=== PATIENT | male | born 1945 | race Caucasian/White ===

== ENCOUNTER 2017-12-09 17:35 | Emergency (ER) | payer OTHER, BC ==
[2017-12-09 18:20] VITALS: BP 117/68; PULSE 79; TEMP 98.4; BMI 31.4
--- NOTE | 2017-12-09 19:15 | PDOC ---
History of Present Illness - General History Source: Patient, Family, Old Records Exam Limitations: No Limitations - History of Present Illness Initial Comments: 12/09/17 19:48 The patient is a 72 year old male, who presents to the emergency department with COPD (on C-pap), body aches, runny nose, cough, sore throat and blurry vision for the past week. He notes that he has had this symptoms multiple times in the past. He states that his cough is productive of a green phlegm. He reports that he has been having discharge from the eyes and notes that he went to the opthamologist who prescribed him some drops. The patient denies chest pain, shortness of breath, headache and dizziness. Denies fever, chills, nausea, vomit, diarrhea and constipation. Denies dysuria, frequency, urgency and hematuria. 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 Cigarette use (5 daily)( 50 year use) MEDICATIONS: reviewed General: No fevers or chills, no weakness, no weight loss HEENT: (+) Sore throat, runny nose and Blurry vision with discharge. No ear pain CardioVascular: No chest pain or shortness of breath Respiratory: (+) Cough with phlegm. No wheezing. Gastrointestinal: no nausea, vomiting, diarrhea or constipation, No rectal bleeding Genitourinary: No dysuria, hematuria, or frequency Musculoskeletal: No joint or muscle pain or swelling Neurologic: No headache, vertigo, dizziness or loss of consciousness Psychiatric: nor depression Skin: No rashes or easy bruising Endocrine: no increased thirst or abnormal weight change Allergic: no skin or latex allergy All other systems reviewed and normal General: Well-nourished well-developed individual, no acute distress HEENT: (+) Bilateral conjuctivitus with thick discharged. Nasal congestion. Neck: Supple, no meningeal signs, no lymphadenopathy Eyes::Pupils equal reactive and round, extraocular motion intact Chest: Nontender to palpation Cardiac: S1-S2 normal, regular rate and rhythm, no murmurs rubs or gallops Respiratory: Lungs clear to auscultation bilateral Abdomen: Soft, nondistended, normal bowel sounds, nontender to palpation diffusely Extremities: Warm, dry, no cyanosis, clubbing, or edema Skin: No rashes Neuro: Alert and oriented x3, nonfocal exam, grossly intact, normal gait Psych: Normal mood and affect <Nick Carrera - Last Filed: 12/09/17 19:59> - General History Source: Patient Exam Limitations: No Limitations - History of Present Illness Initial Comments: A portion of this note was documented by scribe services under my direction. I have reviewed the details of the note, within reason, and agree with the documentation. The case summary and management plan written by me. Assessment and plan: This is a 72-year-old male who has multiple chronic medical problems and is on a seatbelt machine for sleep apnea. Patient has frequent sinus and respiratory infection secondary to what he is attributing to his sleep apnea not being able to be properly cleaned. Patient comes in complaining of discomfort in the area of his frontal maxillary sinuses with thick green and yellow discharge from his nose and also says he is coughing some up. It is unclear as to whether or not it is postnasal drip that is bringing up something from the lungs. However his vitals are normal he has no fever he was not noted to be coughing in the emergency room and his breath sounds were decreased but otherwise clear. Patient saw his primary care doctor earlier in the day was started him on Zyrtec for ALLERGIES. I added azithromycin and suggested that he get a better system for cleaning his see Pap. Patient discharged home with his <Lucille Aragon I - Last Filed: 12/09/17 23:12> - General Chief Complaint: Cold Symptoms Stated Complaint: RUNNY NOSE Time Seen by Provider: 12/09/17 17:41 Past History <Nick Carrera - Last Filed: 12/09/17 19:59> - Past Medical History Anemia: No Asthma: No Cancer: Yes (soft tissue synovial sarcoma) Cardiac Disorders: Yes (ASHD S/P PTCA-1990) CVA: No COPD: Yes (STREP.PNEUMONIA,COPD) CHF: No Dementia: No Diabetes: Yes GI Disorders: Yes (gerd,colonic polyps,diverticulosis) Disorders: No HTN: Yes Hypercholesterolemia: Yes Kidney Stones: Yes Liver Disease: Yes (NAFLD) Psychiatric Problems: Yes (PANIC ATTACKS.) Seizures: No Thyroid Disease: No - Surgical History Abdominal Surgery: Yes (AAA REPAIR 05/18/15) Appendectomy: No Cardiac Surgery: Yes (TRIPLE BY PASS SURGERY-07/18/09) Cholecystectomy: No GI Surgery: No Lung Surgery: No Neurologic Surgery: No Orthopedic Surgery: Yes (LEFT HEMIPELVECTOMY FOR SYNOVIAL SARCOMA RELATED TO AGENT ORANGE EXPOSURE) - Immunization History Immunization Up to Date: Yes - Suicide/Smoking/Psychosocial Hx Smoking Status: Yes Smoking History: Current every day smoker Years of Tobacco Use: 50 Have you smoked in the past 12 months: Yes Number of Cigarettes Smoked Daily: 20 If you are a former smoker, when did you quit?: "many years ago" Information on smoking cessation initiated: Yes 'Breaking Loose' booklet given: 12/09/17 Hx Alcohol Use: No Drug/Substance Use Hx: No Substance Use Type: None Hx Substance Use Treatment: No <Lucille Aragon I - Last Filed: 12/09/17 23:12> - Past Medical History Allergies/Adverse Reactions: Allergies Allergy/AdvReac Type Severity Reaction Status Date / Time topiramate [From Topamax] Allergy Severe caused Verified 01/24/16 10:42 visual problems-glaucoma niacin Allergy Verified 01/24/16 10:42 Home Medications: Ambulatory Orders Aspirin [Aspirin EC] 81 mg PO DAILY 03/07/15 Candesartan/Hydrochlorothiazid [Atacand Hct 32-12.5 mg -] 1 tab PO DAILY Clonazepam 1 mg PO BID 03/07/15 Metoprolol Succinate [Toprol XL -] 50 mg PO BID 03/07/15 Multivitamins [Multivit ([facility] Formulary)] 1 tab PO DAILY 03/07/15 Vienna-3 Fatty Acids [Vienna-3] 1,000 mg PO DAILY 03/07/15 Ranitidine [Zantac -] 150 mg PO BID 03/07/15 Rosuvastatin Calcium [Crestor] 10 mg PO HS 03/07/15 Sitagliptin Phosphate [Januvia] 100 mg PO DAILY 03/07/15 Amlodipine Besylate 7.5 mg PO DAILY 09/06/15 Ascorbate Calcium [Vitamin C] 500 mg PO DAILY 09/06/15 Tiotropium [place] [Spiriva] 1 inh PO DAILY 09/06/15 Glipizide 5 mg PO DAILY 10/03/16 HYDROmorphone [Dilaudid -] 2 mg PO PRN PRN 10/03/16 Pregabalin [Lyrica -] 50 mg PO BID 10/03/16 Mag Carb/Aluminum Hydrox/Algin [Gaviscon Liquid] 30 ml PO PRN PRN #0 oral.susp 10/04/16 Azithromycin [Zithromax 250mg Tablets -] 250 mg PO DAILY #4 tablet 12/09/17 *Physical Exam - Vital Signs Last Vital Signs Temp Pulse Resp BP Pulse Ox 98.4 F 79 20 117/68 96 12/09/17 17:36 12/09/17 17:36 12/09/17 17:36 12/09/17 17:36 12/09/17 17:36 <Nick Carrera - Last Filed: 12/09/17 19:59> - Vital Signs Last Vital Signs Temp Pulse Resp BP Pulse Ox 98.4 F 79 20 117/68 96 12/09/17 17:36 12/09/17 17:36 12/09/17 17:36 12/09/17 17:36 12/09/17 17:36 <Lucille Aragon I - Last Filed: 12/09/17 23:12> *DC/Admit/Observation/Transfer - Attestations Scribe Attestion: 12/09/17 19:48 Documentation prepared by Nick Carrera, acting as director medical affairs for Lucille Aragon MD <Nick Carrera - Last Filed: 12/09/17 19:59> - Discharge Dispostion Admit: No <Lucille Aragon I - Last Filed: 12/09/17 23:12> Diagnosis at time of Disposition: Sinusitis Bilateral conjunctivitis Qualifiers: Conjunctivitis type: unspecified Qualified Code(s): H10.9 - Unspecified conjunctivitis - Discharge Dispostion Disposition: HOME Condition at time of disposition: Stable - Prescriptions Prescriptions: Azithromycin [Zithromax 250mg Tablets -] 250 mg PO DAILY #4 tablet - Patient Instructions Additional Instructions: Continue the drops for the eyes as prescribed. You were given the first dose of the azithromycin/Z-Doyle tonight so to get the prescription filled take your next dose tomorrow take it once a day for the next 4 days. Continue the Zyrtec twice a day. Continue to work on getting a C Pap welt sole layer. Return to the emergency department immediately with ANY new, persistent or worsening symptoms. Continue any medications as previously prescribed by your physician. You should follow up with your primary doctor as soon as possible regarding today's emergency department visit. . Please make sure your doctor reviews the results of your emergency evaluation. Thank you for coming to the Emergency Department today for your care. It was a pleasure to see you today. Please note that your evaluation is INCOMPLETE until you follow-up with your doctor.
[2017-12-09] MEDS ORDERED: AZITHROMYCIN 500 MG TABLET PO ONE (20:00)
[2017-12-09] MEDS ORDERED: AZITHROMYCIN 500 MG TABLET ONE (20:02)
== END 2017-12-09 20:04 | disposition home or self-care (01) ==
LOC: FER 17:35
DX: J32.9 Chronic sinusitis, unspecified (principal); H10.9 Unspecified conjunctivitis; E11.9 Type 2 diabetes mellitus without complications; F41.8 Other specified anxiety disorders; I10 Essential (primary) hypertension; K76.0 Fatty (change of) liver, not elsewhere classified
CPT/HCPCS: 99281-25

== ENCOUNTER 2018-07-28 22:25 | Inpatient (IN) | payer OTHER, BC ==
--- NOTE | 2018-07-28 23:46 | PDOC ---
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 He reports his cough is productive of brown and clear sputum and exacerbated when lying flat. He states he was laying down watching TV when he felt a sudden onset of chest tightness which lasted about 2 minutes and resolved at 7PM. He states that at about 7:30PM he stood up and became weak, shaky, nauseous, and reportedly almost fell secondary to feeling weak. His at bedside reports the patient had been shaking so hard and was warm to the touch, however, did not have a fever when she checked his temperature at home. The patient reportedly had one episode of emesis at that time and one more just prior to coming to the ED. He states he has had pneumonia in the past. He states he did not drink any fluids today and is not a water drinker regularly. The patient denies headache and dizziness. The patient denies fever, diarrhea and constipation. The patient denies dysuria, frequency, urgency and hematuria. Allergies: Niacin, topamax Past surgical history: hemipelvectomy (1972), LLE amputation, AAA repair Social history: 50+ year history of cigarette smoking <Brigitte Santiago - Last Filed: 07/28/18 23:58> <Mayte Kothari - Last Filed: 07/29/18 03:55> - General Chief Complaint: Respiratory Stated Complaint: COUGH HOT AND COLD Time Seen by Provider: 07/28/18 22:39 Past History <Brigitte Santiago - Last Filed: 07/28/18 23:58> - Past Medical History Anemia: No Asthma: No Cancer: Yes (soft tissue synovial sarcoma) Cardiac Disorders: Yes (ASHD S/P PTCA-1990) CVA: No COPD: Yes (STREP.PNEUMONIA,COPD) CHF: No Dementia: No Diabetes: Yes GI Disorders: Yes (gerd,colonic polyps,diverticulosis) Disorders: No HTN: Yes Hypercholesterolemia: Yes Kidney Stones: Yes Liver Disease: Yes (NAFLD) Psychiatric Problems: Yes (PANIC ATTACKS. PTSD) Seizures: No Thyroid Disease: No Other medical history: GLAUCOMA - Surgical History Abdominal Surgery: Yes (AAA REPAIR 05/18/15) Appendectomy: No Cardiac Surgery: Yes (TRIPLE BY PASS SURGERY-07/18/09) Cholecystectomy: No GI Surgery: No Lung Surgery: No Neurologic Surgery: No Orthopedic Surgery: Yes (LEFT HEMIPELVECTOMY FOR SYNOVIAL SARCOMA RELATED TO AGENT ORANGE EXPOSURE) - Immunization History Immunization Up to Date: Yes - Suicide/Smoking/Psychosocial Hx Smoking Status: Yes Smoking History: Current every day smoker Years of Tobacco Use: 50 Have you smoked in the past 12 months: Yes Number of Cigarettes Smoked Daily: 30 If you are a former smoker, when did you quit?: "many years ago" Information on smoking cessation initiated: No 'Breaking Loose' booklet given: 12/09/17 Hx Alcohol Use: No Drug/Substance Use Hx: No Substance Use Type: None Hx Substance Use Treatment: No <Mayte Kothari - Last Filed: 07/29/18 03:55> - Past Medical History Allergies/Adverse Reactions: Allergies Allergy/AdvReac Type Severity Reaction Status Date / Time topiramate [From Topamax] Allergy Severe caused Verified 07/28/18 22:28 visual problems-glaucoma niacin Allergy Verified 07/28/18 22:28 Home Medications: Ambulatory Orders Aspirin [Aspirin EC] 81 mg PO DAILY 03/07/15 Candesartan/Hydrochlorothiazid [Atacand Hct 32-12.5 mg -] 1 tab PO DAILY Clonazepam 1 mg PO BID 03/07/15 Metoprolol Succinate [Toprol XL -] 50 mg PO BID 03/07/15 Multivitamins [Multivit ([facility] Formulary)] 1 tab PO DAILY 03/07/15 Steen-3 Fatty Acids [Steen-3] 1,000 mg PO DAILY 03/07/15 Ranitidine [Zantac -] 150 mg PO BID 03/07/15 Rosuvastatin Calcium [Crestor] 10 mg PO HS 03/07/15 Sitagliptin Phosphate [Januvia] 100 mg PO DAILY 03/07/15 Ascorbate Calcium [Vitamin C] 500 mg PO DAILY 09/06/15 Tiotropium [place] [Spiriva] 1 inh PO DAILY 09/06/15 Pregabalin [Lyrica -] 50 mg PO BID 10/03/16 Amlodipine Besylate 7.5 mg PO DAILY 07/28/18 Budesonide/Formeterol Fumarate [SYMBICORT 80/4.5mcg -] 1 puff IN PRN 07/28/18 Cholecalciferol (Vitamin D3) [Vitamin D -] 2,000 mg PO DAILY 07/28/18 Metformin HCl [Glucophage] 1,000 mg PO BID 07/28/18 Steen-3/Dha/Epa/Fish Oil [Steen 3 500 Softgel] 1 cap PO DAILY 07/28/18 Review of Systems - Review of Systems Able to Perform ROS?: Yes Comments:: 07/28/18 23:55 CONSTITUTIONAL: (+) chills, generalized weakness, fatigue. Absent: fever, diaphoresis, malaise , loss of appetite HEENT: Absent: rhinorrhea, nasal congestion, throat pain, throat swelling, difficulty swallowing,mouth swelling, ear pain, eye pain, visual Changes CARDIOVASCULAR: (+) chest pain, Absent: syncope, palpitations, irregular heart rate, lightheadedness, peripheral edema RESPIRATORY: (+) cough, shortness of breath, orthopnea, Absent: dyspnea with exertion, wheezing, stridor, hemoptysis GASTROINTESTINAL: (+) nausea, vomiting, Absent: abdominal pain, abdominal distension, diarrhea, constipation, melena, hematochezia GENITOURINARY: Absent: dysuria, frequency, urgency, hesitancy, hematuria, flank pain, genital pain MUSCULOSKELETAL: Absent: myalgia, arthralgia, joint swelling SKIN: Absent: rash, itching, pallor HEMATOLOGIC/IMMUNOLOGIC: Absent: easy bleeding, easy bruising, lymphadenopathy, frequent infections ENDOCRINE: Absent: unexplained weight gain, unexplained weight loss, heat intolerance, cold intolerance NEUROLOGIC: Absent: headache, focal weakness or paresthesias, dizziness, unsteady gait, seizure, mental status changes, bladder or bowel incontinence PSYCHIATRIC: Absent: anxiety, depression, suicidal or homicidal ideation, hallucinations. <Brigitte Santiago - Last Filed: 07/28/18 23:58> *Physical Exam - Vital Signs Last Vital Signs Temp Pulse Resp BP Pulse Ox 99.1 F 93 H 16 116/69 93 L 07/28/18 22:28 07/28/18 22:28 07/28/18 22:28 07/28/18 22:28 07/28/18 22:28 - Physical Exam Comments: 07/28/18 23:57 GENERAL: The patient is awake, alert, and fully oriented, in no acute distress. HEAD: Normal with no signs of trauma. EYES: Pupils equal, round and reactive to light, extraocular movements intact, sclera anicteric, conjunctiva clear with no pallor. ENT: (+) Dry mucous membranes. Ears normal, nares patent, oropharynx clear without exudates. NECK: Normal range of motion, supple without lymphadenopathy, JVD, or masses. LUNGS: (+) Expiratory crackles at bilateral bases. Breath sounds equal, No Wheezes. HEART: Regular rate and rhythm, normal S1 and S2 without murmur or rub. ABDOMEN: Soft/nontender/nondistended. BS wnl. No guarding or rebound. No palpable masses. No hepatosplenomegaly. EXTREMITIES: s/p LLE amputation. Normal range of motion, no edema. No clubbing or cyanosis. No cords, erythema, or tenderness. NEUROLOGICAL: Cranial nerves II through XII grossly intact. Normal speech, normal gait. PSYCH: Normal mood, normal affect. SKIN: Warm, Dry, normal turgor, no rashes or lesions noted. <Brigitte Santiago - Last Filed: 07/28/18 23:58> - Vital Signs Last Vital Signs Temp Pulse Resp BP Pulse Ox 99.1 F 93 H 16 116/69 93 L 07/28/18 22:28 07/28/18 22:28 07/28/18 22:28 07/28/18 22:28 07/28/18 22:28 <Mayte Kothari - Last Filed: 07/29/18 03:55> ED Treatment Course - LABORATORY CBC & Chemistry Diagram: 07/29/18 00:50 07/29/18 00:02 <Mayte Kothari - Last Filed: 07/29/18 03:55> Progress Note - Progress Note Progress Note: Documentation has been prepared under my direction and personally reviewed by me in its entirety. I attest that this documented accurately reflects all work, treatment, procedures and medical decision making performed by me. 12-lead electrocardiogram is performed and interpreted by me: This shows normal sinus rhythm at 83 bpm. There is right bundle branch block present there is no significant change when compared to previous EKG tracing dated 09/06/15 <Mayte Kothari - Last Filed: 07/29/18 03:55> Medical Decision Making - Medical Decision Making As noted above, this 73-year-old man with multiple medical problems including COPD, diabetes mellitus, hypertension presents with 2 week history of cough productive of brownish sputum and sudden onset of weakness/chest tightness and shaking chills this evening. Patient had similar episode 4 years ago which resulted in inpatient admission for treatment of pneumonia. Exam as noted. Laboratory evaluation notable for blood cell count of 16,000 with predominance of neutrophils. Remainder of laboratory values are essentially normal. Troponin is not elevated portable chest x-ray shows questionable left lower lobe infiltrate but no clear consolidation or effusion. UA shows no evidence of UTI Lactic acid is 1.[address] Garcia Principal Investigator is Dr Chris 07/29/18 03:37 Clinical presentation consistent with acute pneumonia. Patient is at risk for sepsis given his multiple medical problems. Rocephin 1 g IV as well as azithromycin 500 mg IV administered for community acquired pneumonia. [facility] hospitalist service contacted regarding admission for IV antibiotics for pneumonia 07/29/18 03:52 Case discussed with JIMBO Alan of [facility] Hospitalist service. Patient will be admitted to Dr Owen, Observation <Mayte Kothari - Last Filed: 07/29/18 03:55> *DC/Admit/Observation/Transfer - Attestations Scribe Attestion: 07/28/18 23:59 Documentation prepared by Brigitte Santiago, acting as medical oncologist for Mayte Kothari MD <Brigitte Santiago - Last Filed: 07/28/18 23:58> - Discharge Dispostion Decision to Admit order: Yes <Mayte Kothari - Last Filed: 07/29/18 03:55> Diagnosis at time of Disposition: Pneumonia Qualifiers: Pneumonia type: due to unspecified organism Laterality: left Lung location: lower lobe of lung Qualified Code(s): J18.1 - Lobar pneumonia, unspecified organism - Discharge Dispostion Condition at time of disposition: Guarded
[2018-07-29 01:17] LABS: BASO % 0.6 % (0-2.0); EOS % 0.3 % (0-4.5); HEMATOCRIT 47.3 % (35.4-49); HEMOGLOBIN 15.6 GM/dL (11.7-16.9); LYMPH % 8.6 % (8-40); MCH 30.3 pg (25.7-33.7); MEAN CELL VOLUME 91.8 fl (80-96); MEAN PLT VOLUME 11.6 fl (7.5-11.1); MONO % 6.6 % (3.8-10.2); NEUT % 83.9 % (42.8-82.8); PLATELET COUNT 144 K/MM3 (134-434); RBC 5.15 M/mm3 (4.00-5.60); RDW 14.5 % (11.9-15.9)
[2018-07-29 01:37] LABS: ALBUMIN 3.3 g/dl (3.4-5.0); ALK PHOS 69 U/L (45-117); ANION GAP 11 MMOL/L (8-16); BILIRUBIN,TOTAL 0.6 mg/dL (0.2-1); BLOOD UREA NITROGEN 17 mg/dL (7-18); CALCIUM 9.1 mg/dL (8.5-10.1); CHLORIDE 102 mmol/L (98-107); CO2 25 mmol/L (21-32); CREATININE 0.9 mg/dL (0.55-1.3); GLUCOSE,RANDOM 207 mg/dL (74-106); POTASSIUM 3.6 mmol/L (3.5-5.1); SGOT/AST 34 U/L (15-37); SGPT/ALT 47 U/L (13-61); SODIUM 138 mmol/L (136-145)
[2018-07-29] MEDS ORDERED: CEFTRIAXONE 1 GM in DEXTROSE 5%-WATER - 100 ML IVPB ONE (02:31)
[2018-07-29] MEDS ORDERED: AZITHROMYCIN IVPB 500 MG in DEXTROSE 5%-WATER - 250 ML IVPB ONE (02:33)
[2018-07-29] MEDS ORDERED: cefTRIAXone SODIUM 1 GM VIAL ONE (02:36)
[2018-07-29] MEDS ORDERED: AZITHROMYCIN 500 MG VIAL IVPB ONE (02:36)
[2018-07-29 03:15] LABS: URINE APPEARANCE CLEAR; URINE BILIRUBIN NEGATIVE (<2.0 mg/dL); URINE COLOR DKYELLOW; URINE GLUCOSE (UA) NEGATIVE (NEGATIVE); URINE KETONE NEGATIVE (NEGATIVE); URINE LEUK ESTERASE TRACE (NEGATIVE); URINE NITRITE NEGATIVE (NEGATIVE); URINE PROTEIN 2+ (NEGATIVE)
[2018-07-29 03:31] LABS: URINE BACTERIA FEW /hpf (NONE SEEN); URINE MUCUS RARE
[2018-07-29 05:11] VITALS: BMI 29.6
--- NOTE | 2018-07-29 08:36 | HP ---
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 Patient reports 2 weeks of ongoing cough and sputum production. He reports taking his home inhaler (albuterol) with relief of symptoms. Last evening patient reports worsening of cough and chills. He noted rust colored sputum and became concerned because he was hospitalized in 2013 for strep pneumonia that required PICC line for care home antibiotics. ER course was notable for: (1) chest xray: no infiltrates no effusions noted (2)wbc 16.0 (3) ekg nsr Right B Recent Travel:none PAST MEDICAL HISTORY: see hpi PAST SURGICAL HISTORY: see hpi Social History: retired, [place] , resides at home with Smoking:smokes a 1/2 pack of cigarrettes a day Alcohol:none as per patient Drugs: none as per patient Family History: non contributory to this condition Allergies topiramate [From Topamax] Allergy (Severe, Verified 07/28/18 22:28) caused visual problems-glaucoma niacin Allergy (Verified 07/28/18 22:28) HOME MEDICATIONS: Home Medications Medication Instructions Recorded Aspirin [Aspirin EC] 81 mg PO DAILY 03/07/15 Candesartan/Hydrochlorothiazid 1 tab PO DAILY 03/07/15 [Atacand Hct 32-12.5 mg -] Clonazepam 1 mg PO BID 03/07/15 Metoprolol Succinate [Toprol XL -] 50 mg PO BID 03/07/15 Multivitamins [Multivit ([facility] 1 tab PO DAILY 03/07/15 Formulary)] [place]-3 Fatty Acids [[place]-3] 1,000 mg PO DAILY 03/07/15 Ranitidine [Zantac -] 150 mg PO BID 03/07/15 Rosuvastatin Calcium [Crestor] 10 mg PO HS 03/07/15 Sitagliptin Phosphate [Januvia] 100 mg PO DAILY 03/07/15 Ascorbate Calcium [Vitamin C] 500 mg PO DAILY 09/06/15 Tiotropium [place] [Spiriva] 1 inh PO DAILY 09/06/15 Pregabalin [Lyrica -] 50 mg PO BID 10/03/16 Amlodipine Besylate 7.5 mg PO DAILY 07/28/18 Budesonide/Formeterol Fumarate 2 puff IN PRN PRN 07/28/18 [SYMBICORT 80/4.5mcg -] Cholecalciferol (Vitamin D3) 2,000 mg PO DAILY 07/28/18 [Vitamin D -] Metformin HCl [Glucophage] 1,000 mg PO BID 07/28/18 [place]-3/Dha/Epa/Fish Oil [[place] 3 1 cap PO DAILY 07/28/18 500 Softgel] REVIEW OF SYSTEMS CONSTITUTIONAL: Absent: fever, chills, diaphoresis, generalized weakness, malaise, loss of appetite, weight change HEENT: Absent: rhinorrhea, nasal congestion, throat pain, throat swelling, difficulty swallowing, mouth swelling, ear pain, eye pain, visual changes CARDIOVASCULAR: Absent: chest pain, syncope, palpitations, irregular heart rate, lightheadedness , peripheral edema RESPIRATORY: Present: cough Absent:, shortness of breath, dyspnea with exertion, orthopnea, wheezing, stridor, hemoptysisGASTROINTESTINAL: Absent: abdominal pain, abdominal distension, nausea, vomiting, diarrhea, constipation, melena, hematochezia GENITOURINARY: Absent: dysuria, frequency, urgency, hesitancy, hematuria, flank pain, genital pain MUSCULOSKELETAL: Absent: myalgia, arthralgia, joint swelling, back pain, neck pain SKIN: Absent: rash, itching, pallor HEMATOLOGIC/IMMUNOLOGIC: Absent: easy bleeding, easy bruising, lymphadenopathy, frequent infections ENDOCRINE: Absent: unexplained weight gain, unexplained weight loss, heat intolerance, cold intolerance NEUROLOGIC: Absent: headache, focal weakness or paresthesias, dizziness, unsteady gait, seizure, mental status changes, bladder or bowel incontinence PSYCHIATRIC: Absent: anxiety, depression, suicidal or homicidal ideation, hallucinations. PHYSICAL EXAMINATION Vital Signs - 24 hr 07/28/18 07/29/18 07/29/18 22:28 00:16 01:57 Temperature 99.1 F 98.7 F Pulse Rate 93 H Pulse Rate [ 71 Left] Respiratory 16 18 Rate Blood Pressure 116/69 Blood Pressure 118/67 [Right Arm] O2 Sat by Pulse 93 L 93 L 92 L Oximetry (%) 07/29/18 07/29/18 07/29/18 04:10 05:30 05:40 Temperature 98.2 F 98.0 F Pulse Rate 62 Pulse Rate [ 67 Left] Respiratory 20 20 Rate Blood Pressure 102/40 L Blood Pressure 111/64 [Right Arm] O2 Sat by Pulse 100 96 Oximetry (%) GENERAL: Awake, alert, and fully oriented, in no acute distress. HEAD: Normal with no signs of trauma. EYES: Pupils equal, round and reactive to light, extraocular movements intact, sclera anicteric, conjunctiva clear. No lid lag. EARS, NOSE, THROAT: Ears normal, nares patent, oropharynx clear without exudates. Moist mucous membranes. NECK: Normal range of motion, supple without lymphadenopathy, JVD, or masses. LUNGS: Breath sounds equal, clear to auscultation bilaterally to apexes, crackles noted to bilateral bases, No wheezescra. No accessory muscle use. HEART: Regular rate and rhythm, normal S1 and S2 without murmur, rub or gallop. ABDOMEN: Soft, nontender, not distended, normoactive bowel sounds, no guarding, no rebound, no masses. No hepatomegaly or splenomegaly. MUSCULOSKELETAL: Normal range of motion at all joints. No bony deformities or tenderness. No CVA tenderness. UPPER EXTREMITIES: 2+ pulses, warm, well-perfused. No cyanosis. No clubbing. No peripheral edema. LOWER EXTREMITIES: 2+ pulses, warm, well-perfused. No calf tenderness. No peripheral edema. LLE amputated NEUROLOGICAL: Cranial nerves II-XII intact. Normal speech. Normal gait. PSYCHIATRIC: Cooperative. Good eye contact. Appropriate mood and affect. SKIN: Warm, dry, normal turgor, no rashes or lesions noted, normal capillary refill. Laboratory Results - last 24 hr 07/29/18 07/29/18 07/29/18 00:02 00:02 00:50 WBC 16.0 H RBC 5.15 Hgb 15.6 Hct 47.3 D MCV 91.8 MCH 30.3 D MCHC 33.0 RDW 14.5 D Plt Count 144 MPV 11.6 H D Absolute Neuts (auto) 13.5 H Neutrophils % 83.9 H D Lymphocytes % 8.6 D Monocytes % 6.6 Eosinophils % 0.3 D Basophils % 0.6 Nucleated RBC % 0 Sodium 138 Potassium 3.6 Chloride 102 Carbon Dioxide 25 Anion Gap 11 BUN 17 Creatinine 0.9 Creat Clearance w eGFR > 60 Random Glucose 207 H Lactic Acid Calcium 9.1 Total Bilirubin 0.6 AST 34 ALT 47 Alkaline Phosphatase 69 Creatine Kinase 51 Troponin I < 0.02 Total Protein 7.0 Albumin 3.3 L Urine Color Urine Appearance Urine pH Ur Specific [place] Urine Protein Urine Glucose (UA) Urine Ketones Urine Blood Urine Nitrite Urine Bilirubin Urine Urobilinogen Ur Leukocyte Esterase Urine WBC (Auto) Urine RBC (Auto) Urine Bacteria Urine Mucus 07/29/18 07/29/18 02:13 02:13 WBC RBC Hgb Hct MCV MCH MCHC RDW Plt Count MPV Absolute Neuts (auto) Neutrophils % Lymphocytes % Monocytes % Eosinophils % Basophils % Nucleated RBC % Sodium Potassium Chloride Carbon Dioxide Anion Gap BUN Creatinine Creat Clearance w eGFR Random Glucose Lactic Acid 1.9 Calcium Total Bilirubin AST ALT Alkaline Phosphatase Creatine Kinase Troponin I Total Protein Albumin Urine Color Dkyellow Urine Appearance Clear Urine pH 6.0 Ur Specific [place] 1.021 Urine Protein 2+ H Urine Glucose (UA) Negative Urine Ketones Negative Urine Blood Negative Urine Nitrite Negative Urine Bilirubin Negative Urine Urobilinogen 2.0 Ur Leukocyte Esterase Trace Urine WBC (Auto) 17 Urine RBC (Auto) 21 Urine Bacteria Few Urine Mucus Rare ASSESSMENT/PLAN: 1) pulm copd excerbation - no wheezing noted on exam, will continue symbicort and spiriva with prn duonebs - crackles noted on exam, pending sputum and blood culture,Leukocytosis noted, trend fever curve, wi'll continue empiric Zithromax and Rocephin - pending ct scan of chest - appreciate pulmonary input 2) cardiovascular CAD, s/p CABG x 3 hypertension - continue home dose Toprol, amlodipine and atanacard - b/p at goal - continue lipitor 3) endo DM - continue home dose januvia and metformin - fingersticks achs with regular insulin sliding scale f/e/n - low sodium/diabetic diet - replete magnesium and potassium ppx - oob - scd/maxi - zantac dispo: pt requires obsv admission Visit type - Emergency Visit Emergency Visit: Yes ED Registration Date: 07/30/18 Care time: The patient presented to the Emergency Department on the above date and was hospitalized for further evaluation of their emergent condition. - New Patient This patient is new to me today: Yes Date on this admission: 07/30/18 - Critical Care Critical Care patient: No
[2018-07-29] MEDS ORDERED: PT OWN MED DRAWER 7, Y5N ONE ×2 (09:45→22:07)
[2018-07-29] MEDS ORDERED: ALBUTEROL SO4 2.5/IPRATROPIUM 0.5 INH SOL 3 ML VIAL.NEB. NEB PRN (09:49)
[2018-07-29] MEDS ORDERED: [UNRECOGNIZED DRUG - OTHER] PO SCH (10:00)
[2018-07-29] MEDS ORDERED: PATIENT'S OWN MEDICATION (NON-FORMULARY) (Omega-3/Dha/Epa/Fish Oil [Omega 3 500 Softgel] 1 PO SCH (10:00)
[2018-07-29] MEDS: INSULIN SLIDING SCALE (NOVOLOG) 1 VIAL SQ SCH ×4 (10:35→22:04)
[2018-07-29] MEDS: VALSARTAN 160 MG TABLET (UD) PO SCH (10:40)
[2018-07-29] MEDS: clonazePAM 0.5 MG TABLET PO SCH ×2 (10:40→21:43)
[2018-07-29] MEDS: ASCORBIC ACID 500 MG TABLET (FP) PO SCH (10:41)
[2018-07-29] MEDS: MULTIVITAMINS (DAILY MVI) TABLET (FP) PO SCH (10:41)
[2018-07-29] MEDS: ASPIRIN COATED 81 MG TABLET.EC PO SCH (10:41)
[2018-07-29] MEDS: RANITIDINE HCL 150 MG TABLET (FP) PO SCH ×2 (10:42→21:43)
[2018-07-29] MEDS: CHOLECALCIFEROL (VITAMIN D3) 1,000 UNIT TABLET (FP) PO SCH (10:42)
[2018-07-29] MEDS: PREGABALIN 50 MG CAPSULE PO SCH ×2 (10:42→21:44)
[2018-07-29] MEDS: BUDESONIDE/FORMETEROL FUMARATE 80/4.5 mcg INHALER IH SCH ×2 (10:44→22:17)
[2018-07-29] MEDS: TIOTROPIUM BROMIDE 2.5 MCG (SPIRIVA) RESPIMAT INHALER IH SCH (10:45)
[2018-07-29] MEDS: amLODIPine BESYLATE 2.5 MG TABLET (FP) PO SCH (10:45)
[2018-07-29 10:47] LABS: BASO % 0.5 % (0-2.0); EOS % 1.4 % (0-4.5); HEMATOCRIT 46.2 % (35.4-49); HEMOGLOBIN 15.4 GM/dl (11.7-16.9); LYMPH % 17.1 % (8-40); MCH 30.8 pg (25.7-33.7); MCHC 33.3 g/dl (32.0-35.9); MEAN CELL VOLUME 92.6 fl (80-96); MEAN PLT VOLUME 9.8 fl (7.5-11.1); MONO % 8.3 % (3.8-10.2); NEUT % 72.7 % (42.8-82.8); PLATELET COUNT 122 K/MM3 (134-434); RBC 4.99 M/mm3 (4.00-5.60); RDW 13.7 % (11.9-15.9); WHITE BLOOD COUNT 11.8 K/mm3 (4.0-10.8)
[2018-07-29] MEDS: OMEGA-3 ACID ETHYL ESTERS (FATTY-ACIDS) 1 GM CAPSULE (FP) PO SCH (10:47)
[2018-07-29] MEDS: HYDROCHLOROTHIAZIDE 12.5 MG CAPSULE (FP) PO SCH (10:47)
[2018-07-29 10:54] LABS: ALBUMIN 3.4 g/dl (3.5-5.0); ALK PHOS 54 U/L (32-92); ANION GAP 6 MMOL/L (8-16); BILIRUBIN,TOTAL 0.9 mg/dl (0.2-1.0); BLOOD UREA NITROGEN 15 mg/dl (7-18); CHLORIDE 98 mmol/L (98-107); CO2 31 mmol/L (22-28); CREATININE 0.8 mg/dl (0.6-1.3); GLUCOSE,RANDOM 183 mg/dl (74-106); MAGNESIUM 1.6 mg/dL (1.8-2.4); PHOSPHOROUS 2.8 mg/dl (2.5-4.6); POTASSIUM 3.4 mmol/L (3.5-5.1); SGOT/AST 29 U/L (10-42); SGPT/ALT 38 U/L (10-40); SODIUM 135 mmol/L (136-145); TOT PROT 6.8 g/dl (6.4-8.3)
[2018-07-29] MEDS ORDERED: MAGNESIUM SULFATE 2 GM in SODIUM CHLORIDE 100 ML IVPB ONE (11:15)
[2018-07-29] MEDS ORDERED: POTASSIUM CHLORIDE TABS 20 MEQ TABLET.ER (FP) PO ONE (11:30)
[2018-07-29] MEDS ORDERED: MAGNESIUM SULFATE IN WATER 2 GM/50 ML IVPB IVPB ONE (12:00)
[2018-07-29] MEDS ORDERED: sitaGLIPtin PHOSPHATE 100 MG TABLET (FP) PO SCH (12:15)
--- NOTE | 2018-07-29 15:14 | EKG ---
Test Reason : Blood Pressure : / mmHG Vent. Rate : 083 BPM Atrial Rate : 083 BPM P-R Int : 178 ms QRS Dur : 144 ms QT Int : 462 ms P-R-T Axes : 040 040 032 degrees QTc Int : 542 ms NORMAL SINUS RHYTHM RIGHT BUNDLE BRANCH BLOCK POSSIBLE INFERIOR INFARCT (CITED ON OR BEFORE 27-MAR-2012) ABNORMAL ECG WHEN COMPARED WITH ECG OF 06-SEP-2015 11:14, NO SIGNIFICANT CHANGE WAS FOUND Confirmed by DAMARI CAO MD ([id number]) on 07/29/2018 3:14:13 PM Referred By: DR VALDEZ Confirmed By:DAMARI CAO MD
--- NOTE | 2018-07-29 16:25 | PN ---
Progress Note (short form) - Note Progress Note: PULMONARY CONSULTATION DICTATED 07/29/18 IMP
[2018-07-29] MEDS: metFORMIN HCL 500 MG TABLET (FP) PO SCH (16:28)
--- NOTE | 2018-07-29 17:38 | CON.PULM ---
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 He reports his cough is productive of brown and clear sputum and exacerbated when lying flat. He states he was laying down watching TV when he felt a sudden onset of chest tightness which lasted about 2 minutes and resolved at 7PM. He states that at about 7:30PM he stood up and became weak, shaky, nauseous, and reportedly almost fell secondary to feeling weak. His at bedside reports the patient had been shaking so hard and was warm to the touch, however, did not have a fever when she checked his temperature at home. The patient reportedly had one episode of emesis at that time and one more just prior to coming to the ED. He states he has had pneumonia in the past. He states he did not drink any fluids today and is not a water drinker regularly. 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 No: AFIB Gastrointestinal: No: Ascites Hepatobiliary: No: Cirrhosis Renal/: No: Renal Failure Heme/Onc: No: Anemia Endocrine: Yes: Diabetes Mellitus - Alcohol/Substance Use Hx Alcohol Use: No - Smoking History Smoking history: Current every day smoker Have you smoked in the past 12 months: Yes Aproximately how many cigarettes per day: 30 If you are a former smoker, when did you quit?: "many years ago" Home Medications - Allergies Allergies/Adverse Reactions: Allergies Allergy/AdvReac Type Severity Reaction Status Date / Time topiramate [From Topamax] Allergy Severe caused Verified 07/28/18 22:28 visual problems-glaucoma niacin Allergy Verified 07/28/18 22:28 - Home Medications Home Medications: Ambulatory Orders Aspirin [Aspirin EC] 81 mg PO DAILY 03/07/15 Candesartan/Hydrochlorothiazid [Atacand Hct 32-12.5 mg -] 1 tab PO DAILY Clonazepam 1 mg PO BID 03/07/15 Metoprolol Succinate [Toprol XL -] 50 mg PO BID 03/07/15 Multivitamins [Multivit ([facility] Formulary)] 1 tab PO DAILY 03/07/15 [place]-3 Fatty Acids [[place]-3] 1,000 mg PO DAILY 03/07/15 Ranitidine [Zantac -] 150 mg PO BID 03/07/15 Rosuvastatin Calcium [Crestor] 10 mg PO HS 03/07/15 Sitagliptin Phosphate [Januvia] 100 mg PO DAILY 03/07/15 Ascorbate Calcium [Vitamin C] 500 mg PO DAILY 09/06/15 Tiotropium [place] [Spiriva] 1 inh PO DAILY 09/06/15 Pregabalin [Lyrica -] 50 mg PO BID 10/03/16 Amlodipine Besylate 7.5 mg PO DAILY 07/28/18 Budesonide/Formeterol Fumarate [SYMBICORT 80/4.5mcg -] 2 puff IN PRN PRN Cholecalciferol (Vitamin D3) [Vitamin D -] 2,000 mg PO DAILY 07/28/18 Metformin HCl [Glucophage] 1,000 mg PO BID 07/28/18 [place]-3/Dha/Epa/Fish Oil [[place] 3 500 Softgel] 1 cap PO DAILY 07/28/18 Family Disease History - Family Disease History Family History: Unremarkable Review of Systems - Review of Systems Cardiovascular: denies: Chest Pain Respiratory: reports: Cough, Exercise Intolerance, SOB, SOB on Exertion. denies : Hemoptysis, Wheezing Physical Exam Vital Sings: Vital Signs Temperature 97.5 F L 07/29/18 14:14 Pulse Rate 63 07/29/18 14:14 Respiratory Rate 19 07/29/18 14:14 Blood Pressure 123/55 L 07/29/18 14:14 O2 Sat by Pulse Oximetry (%) 96 07/29/18 05:40 Constitutional: Yes: Calm Eyes: Yes: EOM Intact HENT: Yes: Normocephalic Neck: Yes: Trachea Midline Cardiovascular: Yes: JVD Respiratory: Yes: Rales (LEFT POSTERIOR BASE) Gastrointestinal: Yes: Normal Bowel Sounds Extremities: Yes: Amputation Edema: No Neurological: Yes: WNL, Alert Labs: CBC, BMP 07/29/18 10:11 07/29/18 10:11 REST REVIEWED Imaging - Results Chest X-ray: Report Reviewed, Image Reviewed Cat Scan: Report Reviewed, Image Reviewed Problem List - Problems (1) COPD (chronic obstructive pulmonary disease) Code(s): J44.9 - CHRONIC OBSTRUCTIVE PULMONARY DISEASE, UNSPECIFIED (2) Pneumonia Code(s): J18.9 - PNEUMONIA, UNSPECIFIED ORGANISM Qualifiers: Pneumonia type: due to unspecified organism Laterality: left Lung location: lower lobe of lung Qualified Code(s): J18.1 - Lobar pneumonia, unspecified organism (3) Chronic bronchitis Code(s): J42 - UNSPECIFIED CHRONIC BRONCHITIS (4) S/P AAA repair Code(s): Z98.89 - OTHER SPECIFIED POSTPROCEDURAL STATES * DO NOT USE *; Z86.79 - PERSONAL HISTORY OF OTHER DISEASES OF THE CIRCULATORY SYSTEM (5) Diabetes Code(s): E11.9 - TYPE 2 DIABETES MELLITUS WITHOUT COMPLICATIONS Assessment/Plan PNEUMONIA COPD ACTIVE SMOKER HTN S/P LEFT AKA O2 SUPPLEMENTATION NEEDED CHECK GUEVARA CULTURE BRONCHODILATORS IV ANTIBIOTICS GLYCEMIC CONTROL CONTINUE HOME MEDKelton JOYCE MD
[2018-07-29] MEDS: ROSUVASTATIN CA 10 MG TABLET (FP) PO SCH (21:44)
[2018-07-29] MEDS: CEFTRIAXONE 1 GM/50 ML BAG IVPB SCH (21:44)
[2018-07-29] MEDS: AZITHROMYCIN IVPB 250 MG in DEXTROSE 5%-WATER - 250 ML IVPB SCH (23:00)
[2018-07-30] MEDS ORDERED: INSULIN (NOVOLOG) ASPART 100 UNITS/ML 10ML VIAL ONE (06:28)
[2018-07-30] MEDS: INSULIN SLIDING SCALE (NOVOLOG) 1 VIAL SQ SCH ×5 (06:32→21:14)
[2018-07-30] MEDS: sitaGLIPtin PHOSPHATE 50 MG TABLET PO SCH (06:32)
[2018-07-30] MEDS: metFORMIN HCL 500 MG TABLET (FP) PO SCH ×2 (06:32→16:57)
[2018-07-30 08:54] LABS: HEMATOCRIT 43.2 % (35.4-49); HEMOGLOBIN 14.8 GM/dl (11.7-16.9); LYMPH % 23.7 % (8-40); MCH 31.8 pg (25.7-33.7); MCHC 34.2 g/dl (32.0-35.9); MEAN PLT VOLUME 11.6 fl (7.5-11.1); MONO % 8.7 % (3.8-10.2); NEUT % 64.6 % (42.8-82.8); PLATELET COUNT 127 K/MM3 (134-434); RBC 4.64 M/mm3 (4.00-5.60); RDW 13.3 % (11.9-15.9); WHITE BLOOD COUNT 8.4 K/mm3 (4.0-10.8)
[2018-07-30 09:00] LABS: ANION GAP 6 MMOL/L (8-16); BLOOD UREA NITROGEN 17 mg/dl (7-18); CALCIUM 8.8 mg/dl (8.4-10.2); CHLORIDE 104 mmol/L (98-107); CO2 27 mmol/L (22-28); CREATININE 0.7 mg/dl (0.6-1.3); GLUCOSE,RANDOM 150 mg/dl (74-106); MAGNESIUM 1.9 mg/dL (1.8-2.4); PHOSPHOROUS 2.8 mg/dl (2.5-4.6); POTASSIUM 3.7 mmol/L (3.5-5.1); SODIUM 137 mmol/L (136-145)
[2018-07-30] MEDS ORDERED: PT OWN MED DRAWER 7, Y5N ONE ×3 (09:23→21:17)
[2018-07-30] MEDS: OMEGA-3 ACID ETHYL ESTERS (FATTY-ACIDS) 1 GM CAPSULE (FP) PO SCH (09:24)
[2018-07-30] MEDS: PREGABALIN 50 MG CAPSULE PO SCH ×2 (09:24→21:14)
[2018-07-30] MEDS: clonazePAM 0.5 MG TABLET PO SCH ×2 (09:24→21:13)
[2018-07-30] MEDS: VALSARTAN 160 MG TABLET (UD) PO SCH (09:24)
[2018-07-30] MEDS: HYDROCHLOROTHIAZIDE 12.5 MG CAPSULE (FP) PO SCH (09:24)
[2018-07-30] MEDS: ASCORBIC ACID 500 MG TABLET (FP) PO SCH (09:24)
[2018-07-30] MEDS: ASPIRIN COATED 81 MG TABLET.EC PO SCH (09:25)
[2018-07-30] MEDS: CHOLECALCIFEROL (VITAMIN D3) 1,000 UNIT TABLET (FP) PO SCH (09:25)
[2018-07-30] MEDS: amLODIPine BESYLATE 2.5 MG TABLET (FP) PO SCH ×2 (09:25→10:05)
[2018-07-30] MEDS: MULTIVITAMINS (DAILY MVI) TABLET (FP) PO SCH (09:25)
[2018-07-30] MEDS: BUDESONIDE/FORMETEROL FUMARATE 80/4.5 mcg INHALER IH SCH ×2 (09:25→21:18)
[2018-07-30] MEDS: TIOTROPIUM BROMIDE 2.5 MCG (SPIRIVA) RESPIMAT INHALER IH SCH (09:25)
[2018-07-30] MEDS: RANITIDINE HCL 150 MG TABLET (FP) PO SCH ×2 (09:25→21:13)
--- NOTE | 2018-07-30 09:37 | PN ---
Progress Note, Physician History of Present Illness: PULMONARY ALERT,NO DISTRESS,+ COUGH MINIMAL HEME. - Current Medication List Current Medications: Active Medications Albuterol/Ipratropium (Duoneb -) 1 amp NEB Q6H PRN PRN Reason: SHORTNESS OF BREATH Amlodipine Besylate (Norvasc -) 7.5 mg PO DAILY [facility] Last Admin: 07/30/18 09:25 Dose: 7.5 mg Ascorbic Acid (Vitamin C -) 500 mg PO DAILY [facility] Last Admin: 07/30/18 09:24 Dose: 500 mg Aspirin (Ecotrin -) 81 mg PO DAILY [facility] Last Admin: 07/30/18 09:25 Dose: 81 mg Budesonide/Formoterol Fumarate (Symbicort 80/4.5mcg -) 1 puff IH BID [facility] Last Admin: 07/30/18 09:25 Dose: 1 puff Cholecalciferol (Vitamin D3 -) 2,000 unit PO DAILY [facility] Last Admin: 07/30/18 09:25 Dose: 2,000 unit Clonazepam (Klonopin -) 1 mg PO BID [facility] Last Admin: 07/30/18 09:24 Dose: 1 mg Hydrochlorothiazide (Hctz -) 12.5 mg PO DAILY [facility] Last Admin: 07/30/18 09:24 Dose: 12.5 mg Azithromycin 250 mg/ Dextrose 250 mls @ 250 mls/hr IVPB [facility] Last Admin: 07/29/18 23:00 Dose: 250 mls/hr Ceftriaxone Sodium (Rocephin 1gm Ivpb (Pre-Docked)) 1 gm in 50 mls @ 100 mls/ hr IVPB HS [facility]; Protocol Last Admin: 07/29/18 21:44 Dose: 100 mls/hr Insulin Aspart (Novolog Vial Sliding Scale -) 1 vial SQ ACHS [facility]; Protocol Last Admin: 07/30/18 06:37 Dose: Not Given Metformin HCl (Glucophage -) 1,000 mg PO BIDAC [facility] Last Admin: 07/30/18 06:32 Dose: 1,000 mg Metoprolol Succinate (Toprol Xl -) 50 mg PO BID [facility] Last Admin: 07/30/18 09:25 Dose: 50 mg Multivitamins/Minerals/Vitamin C (Tab-A-Vit -) 1 tab PO DAILY [facility] Last Admin: 07/30/18 09:25 Dose: 1 tab [id number] Ethyl Esters ([place] -) 1 gm PO DAILY [facility] Last Admin: 07/30/18 09:24 Dose: 1 gm Pregabalin (Lyrica -) 50 mg PO BID [facility] Last Admin: 07/30/18 09:24 Dose: 50 mg Ranitidine HCl (Zantac -) 150 mg PO BID [facility] Last Admin: 07/30/18 09:25 Dose: 150 mg Rosuvastatin Calcium (Crestor -) 10 mg PO HS [facility] Last Admin: 07/29/18 21:44 Dose: 10 mg Sitagliptin Phosphate (Januvia -) 100 mg PO DAILY@0700 [facility] Last Admin: 07/30/18 06:32 Dose: 100 mg Tiotropium [place] (Spiriva Respimat) 2 puff IH DAILY [facility] Last Admin: 07/30/18 09:25 Dose: 2 puff Valsartan (Diovan -) 320 mg PO DAILY [facility] Last Admin: 07/30/18 09:24 Dose: 320 mg - Objective Vital Signs: Vital Signs Temperature 97.4 F L 07/30/18 06:00 Pulse Rate 58 L 07/30/18 06:00 Respiratory Rate 20 07/30/18 06:00 Blood Pressure 149/68 07/30/18 06:00 O2 Sat by Pulse Oximetry (%) 95 07/30/18 06:00 Constitutional: Yes: Calm, Obese Eyes: Yes: WNL HENT: Yes: WNL Neck: Yes: WNL Cardiovascular: Yes: Regular Rate and Rhythm, S1, S2 Respiratory: Yes: Rales (FEW CRACKLES LEFT BASE) Gastrointestinal: Yes: Normal Bowel Sounds, Soft Extremities: Yes: Amputation (LEFT AKA) Edema: No Labs: CBC, BMP 07/30/18 07:55 07/30/18 07:55 Assessment/Plan - Problems (1) COPD (chronic obstructive pulmonary disease) Code(s): J44.9 - CHRONIC OBSTRUCTIVE PULMONARY DISEASE, UNSPECIFIED (2) Pneumonia Code(s): J18.9 - PNEUMONIA, UNSPECIFIED ORGANISM Qualifiers: Pneumonia type: due to unspecified organism Laterality: left Lung location: lower lobe of lung Qualified Code(s): J18.1 - Lobar pneumonia, unspecified organism (3) Chronic bronchitis Code(s): J42 - UNSPECIFIED CHRONIC BRONCHITIS (4) S/P AAA repair Code(s): Z98.89 - OTHER SPECIFIED POSTPROCEDURAL STATES * DO NOT USE *; Z86.79 - PERSONAL HISTORY OF OTHER DISEASES OF THE CIRCULATORY SYSTEM (5) Diabetes Code(s): E11.9 - TYPE 2 DIABETES MELLITUS WITHOUT COMPLICATIONS Assessment/Plan PNEUMONIA CLINICALLY IMPROVING COPD ACTIVE SMOKER HTN S/P LEFT AKA O2 SUPPLEMENTATION CHECK GUEVARA CULTURE BRONCHODILATORS IV ANTIBIOTICS GLYCEMIC CONTROL CONTINUE HOME MEDS DR ALVAREZ
--- NOTE | 2018-07-30 10:53 | PN ---
Physical Exam: SUBJECTIVE: Patient seen and examined, resting comfortably in bed, declining sliding scale coverage, reports cough has improved, denies any chest pain or shortness of breath. 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 Vital Signs Period Temp Pulse Resp BP Sys/Dean Pulse Ox Last 24 Hr 97.4 F-98.5 F 55-63 18-20 114-149/55-68 94-95 GENERAL: Awake, alert, and fully oriented, in no acute distress. HEAD: Normal with no signs of trauma. EYES: Pupils equal, round and reactive to light, extraocular movements intact, sclera anicteric, conjunctiva clear. No lid lag. EARS, NOSE, THROAT: Ears normal, nares patent, oropharynx clear without exudates. Moist mucous membranes. NECK: Normal range of motion, supple without lymphadenopathy, JVD, or masses. LUNGS: Breath sounds equal, clear to auscultation bilaterally to apexes, crackles noted to left base, No wheeze, No accessory muscle use. HEART: Regular rate and rhythm, normal S1 and S2 without murmur, rub or gallop. ABDOMEN: Soft, nontender, not distended, normoactive bowel sounds, no guarding, no rebound, no masses. No hepatomegaly or splenomegaly. MUSCULOSKELETAL: Normal range of motion at all joints. No bony deformities or tenderness. No CVA tenderness. UPPER EXTREMITIES: 2+ pulses, warm, well-perfused. No cyanosis. No clubbing. No peripheral edema. LOWER EXTREMITIES: 2+ pulses, warm, well-perfused. No calf tenderness. No peripheral edema. LLE amputated NEUROLOGICAL: Cranial nerves II-XII intact. Normal speech. Normal gait. PSYCHIATRIC: Cooperative. Good eye contact. Appropriate mood and affect. SKIN: Warm, dry, normal turgor, no rashes or lesions noted, normal capillary refill. Laboratory Results - last 24 hr 07/29/18 07/29/18 07/29/18 10:11 10:11 11:09 WBC RBC Hgb Hct MCV MCH MCHC RDW Plt Count MPV Absolute Neuts (auto) Neutrophils % Lymphocytes % Monocytes % Eosinophils % Basophils % Sodium 135 L Potassium 3.4 L Chloride 98 Carbon Dioxide 31 H Anion Gap 6 L BUN 15 Creatinine 0.8 Creat Clearance w eGFR > 60 POC Glucometer 222 Random Glucose 183 H Hemoglobin A1c % 7.0 H Calcium 9.0 Phosphorus 2.8 Magnesium 1.6 L Total Bilirubin 0.9 AST 29 ALT 38 Alkaline Phosphatase 54 Total Protein 6.8 Albumin 3.4 L 07/29/18 07/29/18 07/30/18 15:30 22:03 06:16 WBC RBC Hgb Hct MCV MCH MCHC RDW Plt Count MPV Absolute Neuts (auto) Neutrophils % Lymphocytes % Monocytes % Eosinophils % Basophils % Sodium Potassium Chloride Carbon Dioxide Anion Gap BUN Creatinine Creat Clearance w eGFR POC Glucometer 189 114 153 Random Glucose Hemoglobin A1c % Calcium Phosphorus Magnesium Total Bilirubin AST ALT Alkaline Phosphatase Total Protein Albumin 07/30/18 07/30/18 07:55 07:55 WBC 8.4 RBC 4.64 Hgb 14.8 Hct 43.2 MCV 93.0 MCH 31.8 MCHC 34.2 RDW 13.3 Plt Count 127 L MPV 11.6 H D Absolute Neuts (auto) 5.4 Neutrophils % 64.6 Lymphocytes % 23.7 D Monocytes % 8.7 Eosinophils % 3.0 D Basophils % 0.0 Sodium 137 Potassium 3.7 Chloride 104 Carbon Dioxide 27 Anion Gap 6 L BUN 17 Creatinine 0.7 Creat Clearance w eGFR > 60 POC Glucometer Random Glucose 150 H Hemoglobin A1c % Calcium 8.8 Phosphorus 2.8 Magnesium 1.9 Total Bilirubin AST ALT Alkaline Phosphatase Total Protein Albumin Active Medications Generic Name Dose Route Start Last Admin Trade Name Armondq PRN Reason Stop Dose Admin Albuterol/Ipratropium 1 amp 07/29/18 09:49 Duoneb - NEB Q6H PRN SHORTNESS OF BREATH Amlodipine Besylate 7.5 mg 07/30/18 22:00 Norvasc - PO HS VIVIAN Ascorbic Acid 500 mg 07/29/18 10:00 07/30/18 09:24 Vitamin C - PO 500 mg DAILY VIVIAN Administration Aspirin 81 mg 07/29/18 10:00 07/30/18 09:25 Ecotrin - PO 81 mg DAILY VIVIAN Administration Budesonide/Formoterol Fumarate 1 puff 07/29/18 10:00 07/30/18 09:25 Symbicort 80/4.5mcg - IH 1 puff BID VIVIAN Administration Cholecalciferol 2,000 unit 07/29/18 10:00 07/30/18 09:25 Vitamin D3 - PO 2,000 unit DAILY VIVIAN Administration Clonazepam 1 mg 07/29/18 10:00 07/30/18 09:24 Klonopin - PO 1 mg BID VIVIAN Administration Hydrochlorothiazide 12.5 mg 07/29/18 10:00 07/30/18 09:24 Hctz - PO 12.5 mg DAILY VIVIAN Administration Azithromycin 250 mg/ Dextrose 250 mls @ 250 mls/hr 07/29/18 22:00 07/29/18 23 :00 IVPB 250 mls/hr HS VIVIAN Administration Ceftriaxone Sodium 1 gm in 50 mls @ 100 mls/hr 07/29/18 22:00 07/29/18 21:44 Rocephin 1gm Ivpb (Pre-Docked) IVPB 100 mls/hr HS VIVIAN Administration Protocol Insulin Aspart 1 vial 07/29/18 07:00 07/30/18 06:37 Novolog Vial Sliding Scale - SQ Not Given ACHS VIVIAN Protocol Metformin HCl 1,000 mg 07/29/18 16:30 07/30/18 06:32 Glucophage - PO 1,000 mg BIDAC VIVIAN Administration Metoprolol Succinate 50 mg 07/29/18 10:00 07/30/18 09:25 Toprol Xl - PO 50 mg BID VIVIAN Administration Multivitamins/Minerals/Vitamin C 1 tab 07/29/18 10:00 07/30/18 09:25 Tab-A-Vit - PO 1 tab DAILY VIVIAN Administration Iyucb-[id number] Ethyl Esters 1 gm 07/29/18 10:00 07/30/18 09:24 Lovaza - PO 1 gm DAILY VIVIAN Administration Pregabalin 50 mg 07/29/18 10:00 07/30/18 09:24 Lyrica - PO 50 mg BID VIVIAN Administration Ranitidine HCl 150 mg 07/29/18 10:00 07/30/18 09:25 Zantac - PO 150 mg BID VIVIAN Administration Rosuvastatin Calcium 10 mg 07/29/18 22:00 07/29/18 21:44 Crestor - PO 10 mg HS VIVIAN Administration Sitagliptin Phosphate 100 mg 07/29/18 13:07 07/30/18 06:32 Januvia - PO 100 mg DAILY@0700 VIVIAN Administration Tiotropium [place] 2 puff 07/29/18 10:00 07/30/18 09:25 Spiriva Respimat IH 2 puff DAILY VIVIAN Administration Valsartan 320 mg 07/29/18 10:00 07/30/18 09:24 Diovan - PO 320 mg DAILY VIVIAN Administration Microbiology 07/29/18 00:02 Blood - Peripheral Venous Blood Culture - Preliminary NO GROWTH OBTAINED AFTER 24 HOURS, INCUBATION TO CONTINUE FOR 4 DAYS. 07/29/18 00:13 Blood - Peripheral Venous Blood Culture - Preliminary NO GROWTH OBTAINED AFTER 24 HOURS, INCUBATION TO CONTINUE FOR 4 DAYS. IMAGING chest xray: no infiltrates no effusions noted ct of chest: left lower lobe consilidation, 2.5cm left adrenal mass and cholelithasis ASSESSMENT/PLAN: 1) pulm LLL PNA - continue zithromax and rocephin, pending urine antigens and sputum cultures - leukocytosis improved, patient afebrile copd excerbation - continue symbicort and spiriva, with combivent prn - pulmonary consulted and followed 2) cardiovascular CAD, s/p CABG x 3 hypertension - continue home dose Toprol, amlodipine and atanacard - b/p at goal - continue lipitor 3) endo DM - continue home dose januvia and metformin - hgb a1c 7.0, fingersticks achs with regular insulin sliding scale f/e/n - low sodium/diabetic diet ppx - oob - scd/maxi - zantac dispo: pt requires inpatient admission Visit type - Emergency Visit Emergency Visit: Yes ED Registration Date: 07/30/18 Care time: The patient presented to the Emergency Department on the above date and was hospitalized for further evaluation of their emergent condition. - New Patient This patient is new to me today: No - Critical Care Critical Care patient: No - Discharge Referral Referred to [facility] Med [facility].C[facility] No
[2018-07-30] MEDS: CEFTRIAXONE 1 GM/50 ML BAG IVPB SCH (21:13)
[2018-07-30] MEDS: ROSUVASTATIN CA 10 MG TABLET (FP) PO SCH (21:14)
[2018-07-30] MEDS ORDERED: amLODIPine BESYLATE 2.5 MG TABLET (FP) PO SCH (22:00)
[2018-07-30] MEDS: AZITHROMYCIN IVPB 250 MG in DEXTROSE 5%-WATER - 250 ML IVPB SCH (22:06)
[2018-07-31] MEDS: sitaGLIPtin PHOSPHATE 50 MG TABLET PO SCH (06:36)
[2018-07-31] MEDS: metFORMIN HCL 500 MG TABLET (FP) PO SCH (06:37)
[2018-07-31] MEDS: INSULIN SLIDING SCALE (NOVOLOG) 1 VIAL SQ SCH ×2 (06:37→11:26)
--- NOTE | 2018-07-31 07:44 | PN ---
Progress Note, Physician History of Present Illness: pulmonary alert no distress,less cough,trace heme. - Current Medication List Current Medications: Active Medications Albuterol/Ipratropium (Duoneb -) 1 amp NEB Q6H PRN PRN Reason: SHORTNESS OF BREATH Amlodipine Besylate (Norvasc -) 7.5 mg PO HS [facility] Last Admin: 07/30/18 21:14 Dose: 7.5 mg Ascorbic Acid (Vitamin C -) 500 mg PO DAILY [facility] Last Admin: 07/30/18 09:24 Dose: 500 mg Aspirin (Ecotrin -) 81 mg PO DAILY [facility] Last Admin: 07/30/18 09:25 Dose: 81 mg Budesonide/Formoterol Fumarate (Symbicort 80/4.5mcg -) 1 puff IH BID [facility] Last Admin: 07/30/18 21:18 Dose: 1 puff Cholecalciferol (Vitamin D3 -) 2,000 unit PO DAILY [facility] Last Admin: 07/30/18 09:25 Dose: 2,000 unit Clonazepam (Klonopin -) 1 mg PO BID [facility] Last Admin: 07/30/18 21:13 Dose: 1 mg Hydrochlorothiazide (Hctz -) 12.5 mg PO DAILY [facility] Last Admin: 07/30/18 09:24 Dose: 12.5 mg Azithromycin 250 mg/ Dextrose 250 mls @ 250 mls/hr IVPB [facility] Last Admin: 07/30/18 22:06 Dose: 250 mls/hr Ceftriaxone Sodium (Rocephin 1gm Ivpb (Pre-Docked)) 1 gm in 50 mls @ 100 mls/ hr IVPB HS [facility]; Protocol Last Admin: 07/30/18 21:13 Dose: 100 mls/hr Insulin Aspart (Novolog Vial Sliding Scale -) 1 vial SQ ACHS [facility]; Protocol Last Admin: 07/31/18 06:37 Dose: Not Given Metformin HCl (Glucophage -) 1,000 mg PO BIDAC [facility] Last Admin: 07/31/18 06:37 Dose: 1,000 mg Metoprolol Succinate (Toprol Xl -) 50 mg PO BID [facility] Last Admin: 07/30/18 21:13 Dose: 50 mg Multivitamins/Minerals/Vitamin C (Tab-A-Vit -) 1 tab PO DAILY [facility] Last Admin: 07/30/18 09:25 Dose: 1 tab [id number] Ethyl Esters (Lovaza -) 1 gm PO DAILY [facility] Last Admin: 07/30/18 09:24 Dose: 1 gm Pregabalin (Lyrica -) 50 mg PO BID [facility] Last Admin: 07/30/18 21:14 Dose: 50 mg Ranitidine HCl (Zantac -) 150 mg PO BID [facility] Last Admin: 07/30/18 21:13 Dose: 150 mg Rosuvastatin Calcium (Crestor -) 10 mg PO HS [facility] Last Admin: 07/30/18 21:14 Dose: 10 mg Sitagliptin Phosphate (Januvia -) 100 mg PO DAILY@0700 [facility] Last Admin: 07/31/18 06:36 Dose: 100 mg Tiotropium [place] (Spiriva Respimat) 2 puff IH DAILY [facility] Last Admin: 07/30/18 09:25 Dose: 2 puff Valsartan (Diovan -) 320 mg PO DAILY [facility] Last Admin: 07/30/18 09:24 Dose: 320 mg - Objective Vital Signs: Vital Signs Temperature 97.3 F L 07/31/18 06:00 Pulse Rate 53 L 07/31/18 06:00 Respiratory Rate 20 07/31/18 06:00 Blood Pressure 149/65 07/31/18 06:00 O2 Sat by Pulse Oximetry (%) 94 L 07/31/18 06:00 Constitutional: Yes: Well Nourished, Calm Eyes: Yes: WNL HENT: Yes: WNL Neck: Yes: WNL Cardiovascular: Yes: Regular Rate and Rhythm, S1, S2 Respiratory: Yes: Diminished Gastrointestinal: Yes: Normal Bowel Sounds, Soft Extremities: Yes: Amputation (left aka) Edema: No Labs: CBC, BMP 07/30/18 07:55 07/30/18 07:55 Assessment/Plan - Problems (1) COPD (chronic obstructive pulmonary disease) Code(s): J44.9 - CHRONIC OBSTRUCTIVE PULMONARY DISEASE, UNSPECIFIED (2) Pneumonia Code(s): J18.9 - PNEUMONIA, UNSPECIFIED ORGANISM Qualifiers: Pneumonia type: due to unspecified organism Laterality: left Lung location: lower lobe of lung Qualified Code(s): J18.1 - Lobar pneumonia, unspecified organism (3) Chronic bronchitis Code(s): J42 - UNSPECIFIED CHRONIC BRONCHITIS (4) S/P AAA repair Code(s): Z98.89 - OTHER SPECIFIED POSTPROCEDURAL STATES * DO NOT USE *; Z86.79 - PERSONAL HISTORY OF OTHER DISEASES OF THE CIRCULATORY SYSTEM (5) Diabetes Code(s): E11.9 - TYPE 2 DIABETES MELLITUS WITHOUT COMPLICATIONS Assessment/Plan PNEUMONIA CLINICALLY IMPROVING COPD ACTIVE SMOKER HTN S/P LEFT AKA O2 SUPPLEMENTATION BRONCHODILATORS AUGMENTIN 8[address] ALVAREZ
[2018-07-31 08:43] LABS: BASO % 1.1 % (0-2.0); EOS % 2.6 % (0-4.5); HEMOGLOBIN 15.6 GM/dl (11.7-16.9); LYMPH % 21.3 % (8-40); MCH 32.1 pg (25.7-33.7); MCHC 34.6 g/dl (32.0-35.9); MEAN CELL VOLUME 92.7 fl (80-96); MEAN PLT VOLUME 11.4 fl (7.5-11.1); PLATELET COUNT 130 K/MM3 (134-434); RBC 4.86 M/mm3 (4.00-5.60); WHITE BLOOD COUNT 8.4 K/mm3 (4.0-10.8)
[2018-07-31 08:53] LABS: ALBUMIN 3.4 g/dl (3.5-5.0); ALK PHOS 55 U/L (32-92); ANION GAP 6 MMOL/L (8-16); BILIRUBIN,TOTAL 0.5 mg/dl (0.2-1.0); BLOOD UREA NITROGEN 17 mg/dl (7-18); CALCIUM 9.1 mg/dl (8.4-10.2); CHLORIDE 103 mmol/L (98-107); CO2 27 mmol/L (22-28); CREATININE 0.7 mg/dl (0.6-1.3); GLUCOSE,RANDOM 160 mg/dl (74-106); MAGNESIUM 1.7 mg/dL (1.8-2.4); POTASSIUM 3.8 mmol/L (3.5-5.1); SGOT/AST 47 U/L (10-42); SGPT/ALT 53 U/L (10-40); SODIUM 136 mmol/L (136-145); TOT PROT 6.7 g/dl (6.4-8.3)
[2018-07-31] MEDS ORDERED: MAGNESIUM SULFATE 2 GM in SODIUM CHLORIDE 100 ML IVPB ONE (09:01)
[2018-07-31] MEDS ORDERED: MAGNESIUM SULFATE IN WATER 2 GM/50 ML IVPB IVPB ONE (09:15)
[2018-07-31] MEDS ORDERED: PT OWN MED DRAWER 7, Y5N ONE (09:32)
[2018-07-31] MEDS ORDERED: CEFTRIAXONE 1 GM/50 ML BAG IVPB SCH (10:00)
[2018-07-31] MEDS ORDERED: AZITHROMYCIN IVPB 250 MG in DEXTROSE 5%-WATER - 250 ML IVPB SCH (10:00)
--- NOTE | 2018-07-31 10:04 | DS ---
Physical Exam: SUBJECTIVE: Patient seen and examined, patient is ambulatory throughout nursing unit, denies any chest pairn or shortness of breath, does report cough is much improved, tolerating diet, ready for discharge home. 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 Patient reports 2 weeks of ongoing cough and sputum production. He reports taking his home inhaler (albuterol) with relief of symptoms. Last evening patient reports worsening of cough and chills. He noted rust colored sputum and became concerned because he was hospitalized in 2013 for strep pneumonia that required PICC line for termite treater helper antibiotics. ER course was notable for: (1) chest xray: no infiltrates no effusions noted (2)wbc 16.0 (3) ekg nsr Right BBB Vital Signs Period Temp Pulse Resp BP Sys/Dean Pulse Ox Last 24 Hr 97.3 F-98.4 F 53-57 18-20 107-149/52-65 94-98 PHYSICAL EXAM GENERAL: Awake, alert, and fully oriented, in no acute distress. HEAD: Normal with no signs of trauma. EYES: Pupils equal, round and reactive to light, extraocular movements intact, sclera anicteric, conjunctiva clear. No lid lag. EARS, NOSE, THROAT: Ears normal, nares patent, oropharynx clear without exudates. Moist mucous membranes. NECK: Normal range of motion, supple without lymphadenopathy, JVD, or masses. LUNGS: Breath sounds equal, clear to auscultation bilaterally to apexes, fine crackles noted to left base, No wheeze, No accessory muscle use. HEART: Regular rate and rhythm, normal S1 and S2 without murmur, rub or gallop. ABDOMEN: Soft, nontender, not distended, normoactive bowel sounds, no guarding, no rebound, no masses. No hepatomegaly or splenomegaly. MUSCULOSKELETAL: Normal range of motion at all joints. No bony deformities or tenderness. No CVA tenderness. UPPER EXTREMITIES: 2+ pulses, warm, well-perfused. No cyanosis. No clubbing. No peripheral edema. LOWER EXTREMITIES: 2+ pulses, warm, well-perfused. No calf tenderness. No peripheral edema. LLE amputated NEUROLOGICAL: Cranial nerves II-XII intact. Normal speech. Normal gait. PSYCHIATRIC: Cooperative. Good eye contact. Appropriate mood and affect. SKIN: Warm, dry, normal turgor, no rashes or lesions noted, normal capillary refill. LABS Laboratory Results - last 24 hr 07/30/18 07/30/18 07/31/18 10:52 16:47 08:15 WBC 8.4 RBC 4.86 Hgb 15.6 Hct 45.0 MCV 92.7 MCH 32.1 MCHC 34.6 RDW 13.0 Plt Count 130 L MPV 11.4 H Absolute Neuts (auto) 5.7 Neutrophils % 68.0 Lymphocytes % 21.3 Monocytes % 7.0 Eosinophils % 2.6 Basophils % 1.1 D Sodium Potassium Chloride Carbon Dioxide Anion Gap BUN Creatinine Creat Clearance w eGFR POC Glucometer 159 165 Random Glucose Calcium Phosphorus Magnesium Total Bilirubin AST ALT Alkaline Phosphatase Total Protein Albumin 07/31/18 08:15 WBC RBC Hgb Hct MCV MCH MCHC RDW Plt Count MPV Absolute Neuts (auto) Neutrophils % Lymphocytes % Monocytes % Eosinophils % Basophils % Sodium 136 Potassium 3.8 Chloride 103 Carbon Dioxide 27 Anion Gap 6 L BUN 17 Creatinine 0.7 Creat Clearance w eGFR > 60 POC Glucometer Random Glucose 160 H Calcium 9.1 Phosphorus 3.0 Magnesium 1.7 L Total Bilirubin 0.5 AST 47 H D ALT 53 H D Alkaline Phosphatase 55 Total Protein 6.7 Albumin 3.4 L Microbiology 07/29/18 10:00 Sputum - Expectorated Sputum Culture - Preliminary NORMAL RESPIRATORY JAIRO 07/30/18 13:00 Urine For Antigen Detection Legionella Antigen - Preliminary , negative 07/30/18 13:00 Urine For Antigen Detection Streptococcus pneumoniae Antigen (M - Preliminary, negative 07/29/18 13:08 Urine - Urine Clean Catch Urine Culture - Final NO GROWTH OBTAINED 07/29/18 00:02 Blood - Peripheral Venous Blood Culture - Preliminary NO GROWTH OBTAINED AFTER 48 HOURS, INCUBATION TO CONTINUE FOR 3 DAYS. 07/29/18 00:13 Blood - Peripheral Venous Blood Culture - Preliminary NO GROWTH OBTAINED AFTER 48 HOURS, INCUBATION TO CONTINUE FOR 3 DAYS. IMAGING chest xray: no infiltrates no effusions noted ct of chest: left lower lobe consilidation, 2.5cm left adrenal mass and cholelithasis HOSPITAL COURSE: 1) pulm LLL PNA - zithromax and rocephin IV (day 3)-->patient was transitioned to po abx zithromax for 2 day and augmentin for 7 days - leukocytosis improved, patient afebrile copd excerbation - continued symbicort and spiriva, with combivent prn - pulmonary consulted and followed 2) cardiovascular CAD, s/p CABG x 3 hypertension - continue home dose Toprol, amlodipine and atanacard - b/p at goal - continued lipitor 3) endo DM - continue home dose januvia and metformin - hgb a1c 7.0, fingersticks achs with regular insulin sliding scale, patient declined insulin sliding scale throughout admission PLAN: - discharge home augmentin 875/125mg for 7 days and zithromax for 2 days - strict follow up with Dr Chris, pulmonary and PCP within 2 weeks - return precautions reviewed, patient verbalizes understanding all questions answered. Date of Admission:07/30/18 Date of Discharge: 07/31/18 Minutes to complete discharge: 45 Discharge Summary Reason For Visit: COUGH HOT AND COLD Current Active Problems COPD (chronic obstructive pulmonary disease) (Acute) Diabetes (Acute) Pneumonia (Acute) Condition: Improved - Instructions Diet, Activity, Other Instructions: You were admitted to the hospital for pneumonia and you were treated with IV antibiotics Continue the following antibiotics as prescribed: Zithromaxdaily for the next 2 days Augmentin daily for the next 7 days Continue all home medications as prescribed Please follow-up with your plant specialist and your primary care physician within 2 weeks if any new or persistent symptoms develop please return to emergency department Referrals: Roque Chris MD [Staff Physician] - 2 Weeks Raudel Garcia MD [Staff Physician] - 2 Weeks Disposition: HOME - Home Medications Comprehensive Discharge Medication List: Ambulatory Orders Aspirin [Aspirin EC] 81 mg PO DAILY 03/07/15 Candesartan/Hydrochlorothiazid [Atacand Hct 32-12.5 mg -] 1 tab PO DAILY Clonazepam 1 mg PO BID 03/07/15 Metoprolol Succinate [Toprol XL -] 50 mg PO BID 03/07/15 Multivitamins [Multivit ([facility])] 1 tab PO DAILY 03/07/15 [place]-3 Fatty Acids [[place]-3] 1,000 mg PO DAILY 03/07/15 Ranitidine [Zantac -] 150 mg PO BID 03/07/15 Rosuvastatin Calcium [Crestor] 10 mg PO HS 03/07/15 Sitagliptin Phosphate [Januvia] 100 mg PO DAILY 03/07/15 Ascorbate Calcium [Vitamin C] 500 mg PO DAILY 09/06/15 Tiotropium [place] [Spiriva] 1 inh PO DAILY 09/06/15 Pregabalin [Lyrica -] 50 mg PO BID 10/03/16 Amlodipine Besylate 7.5 mg PO DAILY 07/28/18 Budesonide/Formeterol Fumarate [SYMBICORT 80/4.5mcg -] 2 puff IN PRN PRN Cholecalciferol (Vitamin D3) [Vitamin D -] 2,000 mg PO DAILY 07/28/18 Metformin HCl [Glucophage] 1,000 mg PO BID 07/28/18 [place]-3/Dha/Epa/Fish Oil [[place] 3 500 Softgel] 1 cap PO DAILY 07/28/18 This patient is new to me today: No Emergency Visit: Yes ED Registration Date: 07/30/18 Care time: The patient presented to the Emergency Department on the above date and was hospitalized for further evaluation of their emergent condition. Critical Care patient: No - Discharge Referral Referred to [facility] No
[2018-07-31 10:12] VITALS: BP 144/69; PULSE 64; TEMP 97.9
[2018-07-31] MEDS: OMEGA-3 ACID ETHYL ESTERS (FATTY-ACIDS) 1 GM CAPSULE (FP) PO SCH (10:18)
[2018-07-31] MEDS: HYDROCHLOROTHIAZIDE 12.5 MG CAPSULE (FP) PO SCH (10:18)
[2018-07-31] MEDS: PREGABALIN 50 MG CAPSULE PO SCH (10:18)
[2018-07-31] MEDS: ASPIRIN COATED 81 MG TABLET.EC PO SCH (10:18)
[2018-07-31] MEDS: RANITIDINE HCL 150 MG TABLET (FP) PO SCH (10:18)
[2018-07-31] MEDS: MULTIVITAMINS (DAILY MVI) TABLET (FP) PO SCH (10:19)
[2018-07-31] MEDS: ASCORBIC ACID 500 MG TABLET (FP) PO SCH (10:19)
[2018-07-31] MEDS: TIOTROPIUM BROMIDE 2.5 MCG (SPIRIVA) RESPIMAT INHALER IH SCH (10:20)
[2018-07-31] MEDS: BUDESONIDE/FORMETEROL FUMARATE 80/4.5 mcg INHALER IH SCH (10:20)
[2018-07-31] MEDS: clonazePAM 0.5 MG TABLET PO SCH (10:21)
[2018-07-31] MEDS: VALSARTAN 160 MG TABLET (UD) PO SCH (10:21)
[2018-07-31] MEDS: CHOLECALCIFEROL (VITAMIN D3) 1,000 UNIT TABLET (FP) PO SCH (10:22)
== END 2018-07-31 13:11 | disposition home or self-care (01) | DRG 190 ==
LOC: FER 22:25 → FM/S 07-29 03:50 → UNDOADMOB 07-29 04:03 → FM/S 07-29 04:03 → OBSVTOIN 07-30 11:49
PROVIDERS: ADMIT Internal Medicine; ATTEND Nurse Practitioner Family
PROC: 3E0F7GC Introduction of Other Therapeutic Substance into Respiratory Tract, Via Natural or Artificial Opening (ICD-10-PCS; principal; 2018-07-28)
DX: J44.1 Chronic obstructive pulmonary disease with (acute) exacerbation (principal); J18.9 Pneumonia, unspecified organism; E11.9 Type 2 diabetes mellitus without complications; I10 Essential (primary) hypertension; I25.10 Atherosclerotic heart disease of native coronary artery without angina pectoris; K21.9 Gastro-esophageal reflux disease without esophagitis; K57.30 Diverticulosis of large intestine without perforation or abscess without bleeding; Z85.89 Personal history of malignant neoplasm of other organs and systems; Z89.612 Acquired absence of left leg above knee; Z95.1 Presence of aortocoronary bypass graft; F17.210 Nicotine dependence, cigarettes, uncomplicated; E66.9 Obesity, unspecified; Z68.29 Body mass index [BMI] 29.0-29.9, adult; E27.8 Other specified disorders of adrenal gland; Z79.84 Long term (current) use of oral hypoglycemic drugs
CPT/HCPCS: 36415; 71045-TC-FY; 71046-TC-FY; 71250-TC; 80048; 80053; 81003; 81015; 82550; 82962; 83036; 83605; 83735; 84100; 84484; 85025; 87040; 87070; 87086; 87205; 87899; 93005; 99283-25; G0378

== ENCOUNTER 2019-11-03 06:57 | Day surgery (SDC) | payer OTHER, BC ==
[2019-11-02 09:42] VITALS: BMI 30.4
[2019-11-03 09:01] VITALS: PULSE 60
[2019-11-03 12:31] VITALS: BP 100/57; TEMP 97.9
--- NOTE | 2019-11-08 15:11 | PATH ---
Surgical Pathology Report Patient Name: ELLEN MORENO [facility]. Rec. #: [id number] /Age/Gender: 1945 (Age: 74) / M Account: [id number] Location: U-ENDOSCOPY Taken: 11/03/2019 Received: 11/03/2019 Reported: 11/08/2019 Physicians: Parag Guadarrama M.D. Specimen(s) Received A: GASTRIC ANTRUM B: GASTRIC BODY RUGAE C: SPLENIC FLEXURE, POLYP D: SIGMOID POLYP Clinical History Adenoma surveillance, dyspepsia, GERD Postoperative diagnosis: Gastritis, hiatal hernia, GERD, diverticulosis, colon polyps Final Diagnosis A. GASTRIC ANTRUM, BIOPSY: GASTRIC ANTRAL MUCOSA WITH MILD CHRONIC GASTRITIS. IMMUNOHISTOCHEMICAL STAIN FOR H. PYLORI IS NEGATIVE.. B. GASTRIC BODY, RUGAE, BIOPSY: GASTRIC BODY MUCOSA WITH MILD CHRONIC GASTRITIS. IMMUNOHISTOCHEMICAL STAIN FOR H. PYLORI IS NEGATIVE. C. COLON, SPLENIC FLEXURE, POLYP, POLYPECTOMY: TUBULAR ADENOMA. D. SIGMOID COLON, POLYPS, POLYPECTOMY: HYPERPLASTIC POLYP(S). Positive and negative controls (internal if applicable) show appropriate results. Electronically Signed Tahmina Stokes M.D. Gross Description A. Received in formalin, labeled "biopsy gastric antrum" are 2 barakat, irregular portions of soft tissue measuring 0.4 and 0.5 cm. in greatest dimension. The specimens are submitted in toto in one cassette. B. Received in formalin, labeled "biopsy gastric body" are 2 barakat, irregular portions of soft tissue measuring 0.1 and 0.5 cm. in greatest dimension. The specimens are submitted in toto in one cassette. C. Received in formalin, labeled "splenic flexure polyp" is a barakat, irregular portion of soft tissue measuring 0.5 cm. in greatest dimension. The specimen is submitted in toto in one cassette. D. Received in formalin, labeled "sigmoid polyps" are 3 barakat, irregular portions of soft tissue ranging from 0.2-0.4 cm. in greatest dimension. The specimens are submitted in toto in one cassette. DL/11/03/2019 saudi/11/03/2019
== END 2019-11-03 10:00 | disposition home or self-care (01) ==
LOC: JASU-ENDO 06:57
PROVIDERS: ATTEND Internal Medicine Gastroenterology
PROC: 0DBL8ZX Excision of Transverse Colon, Via Natural or Artificial Opening Endoscopic, Diagnostic (ICD-10-PCS; 2019-11-03)
PROC: 0DB38ZX Excision of Lower Esophagus, Via Natural or Artificial Opening Endoscopic, Diagnostic (ICD-10-PCS; 2019-11-03)
PROC: 0DB68ZX Excision of Stomach, Via Natural or Artificial Opening Endoscopic, Diagnostic (ICD-10-PCS; 2019-11-03)
PROC: 0DBN8ZX Excision of Sigmoid Colon, Via Natural or Artificial Opening Endoscopic, Diagnostic (ICD-10-PCS; principal; 2019-11-03 08:00)
DX: Z12.11 Encounter for screening for malignant neoplasm of colon (principal); Z86.010 Personal history of colon polyps; D12.5 Benign neoplasm of sigmoid colon; K64.8 Other hemorrhoids; K57.30 Diverticulosis of large intestine without perforation or abscess without bleeding; K21.0 Gastro-esophageal reflux disease with esophagitis; K44.9 Diaphragmatic hernia without obstruction or gangrene; K29.70 Gastritis, unspecified, without bleeding; E11.9 Type 2 diabetes mellitus without complications; I10 Essential (primary) hypertension; J44.9 Chronic obstructive pulmonary disease, unspecified; G47.30 Sleep apnea, unspecified
CPT/HCPCS: 88305-TC; 88342-TC

== ENCOUNTER 2020-10-10 08:39 | Emergency (ER) | payer OTHER, BC ==
[2020-10-10 08:44] VITALS: BP 124/65; PULSE 64; TEMP 98.5; BMI 30.9
[2020-10-10] MEDS ORDERED: KETOROLAC TROMETHAMINE 30 MG/1 ML VIAL IM ONE (08:53)
[2020-10-10] MEDS ORDERED: predniSONE 20 MG TABLET (UD) PO ONE (08:53)
[2020-10-10] MEDS ORDERED: KETOROLAC TROMETHAMINE 30 MG/1 ML VIAL ONE (08:57)
[2020-10-10] MEDS ORDERED: predniSONE 20 MG TABLET (UD) ONE (08:57)
== END 2020-10-10 09:10 | disposition home or self-care (01) ==
LOC: FER 08:39
PROC: 3E0233Z Introduction of Anti-inflammatory into Muscle, Percutaneous Approach (ICD-10-PCS; principal; 2020-10-10)
DX: M54.5 Low back pain (principal)
CPT/HCPCS: 99284-25

== ENCOUNTER 2021-07-20 12:16 | Emergency (ER) | payer OTHER, BC ==
[2021-07-20 13:03] VITALS: BP 136/74; PULSE 74; TEMP 98.1; BMI 30.9
== END 2021-07-20 13:06 | disposition home or self-care (01) ==
LOC: FER 12:16
DX: K59.01 Slow transit constipation (principal)
CPT/HCPCS: 99282-25

== ENCOUNTER 2022-02-22 04:19 | Day surgery (SDC) | payer OTHER, BC ==
[2022-02-20 13:36] VITALS: BMI 30.7
[2022-02-22 13:53] VITALS: BP 127/71; PULSE 73; TEMP 98
== END 2022-02-22 13:54 | disposition home or self-care (01) ==
LOC: JASU-ENDO 04:19
PROVIDERS: ATTEND Internal Medicine Gastroenterology
PROC: 0DB78ZX Excision of Stomach, Pylorus, Via Natural or Artificial Opening Endoscopic, Diagnostic (ICD-10-PCS; 2022-02-22)
PROC: 0DB28ZX Excision of Middle Esophagus, Via Natural or Artificial Opening Endoscopic, Diagnostic (ICD-10-PCS; 2022-02-22)
PROC: 0DB38ZX Excision of Lower Esophagus, Via Natural or Artificial Opening Endoscopic, Diagnostic (ICD-10-PCS; 2022-02-22)
PROC: 0DB48ZX Excision of Esophagogastric Junction, Via Natural or Artificial Opening Endoscopic, Diagnostic (ICD-10-PCS; principal; 2022-02-22 12:00)
DX: K21.00 Gastro-esophageal reflux disease with esophagitis, without bleeding (principal); K29.30 Chronic superficial gastritis without bleeding; K44.9 Diaphragmatic hernia without obstruction or gangrene; K22.89 Other specified disease of esophagus
CPT/HCPCS: 88305-TC; 88342-TC

== ENCOUNTER 2022-05-19 09:22 | Emergency (ER) | payer OTHER, BC ==
[2022-05-19 09:30] VITALS: BP 123/65; PULSE 75; RESP 18; TEMP 97.7; BMI 30.4
== END 2022-05-19 10:00 | disposition home or self-care (01) ==
LOC: FER 09:22
DX: R21 Rash and other nonspecific skin eruption (principal)
CPT/HCPCS: 99281-25

== ENCOUNTER 2022-12-24 16:39 | Emergency (ER) | payer OTHER, BC ==
[2022-12-24] MEDS ORDERED: MECLIZINE HCL 25 MG TABLET (FP) PO ONE (17:31)
[2022-12-24] MEDS ORDERED: MECLIZINE HCL 25 MG TABLET (FP) ONE (17:38)
[2022-12-24 18:44] VITALS: RESP 20; TEMP 98; BMI 21.2
[2022-12-24 19:03] VITALS: BP 113/64; PULSE 77
== END 2022-12-24 19:07 | disposition home or self-care (01) ==
LOC: FER 16:39
DX: R42 Dizziness and giddiness (principal)
CPT/HCPCS: 70450-TC; 99284-25

== ENCOUNTER 2023-04-19 20:48 | Emergency (ER) | payer OTHER, BC ==
[2023-04-19 21:12] VITALS: BMI 26.9
[2023-04-19] MEDS ORDERED: SODIUM CHLORIDE 1,000 ML IV ONE ×3 (21:14→21:25)
[2023-04-19] MEDS ORDERED: INSULIN REGULAR HUMAN 100 UNITS/ML *VIAL IVPUSH ONE (21:15)
[2023-04-19] MEDS ORDERED: PANTOPRAZOLE SODIUM 40 MG VIAL IVPUSH ONE (21:16)
[2023-04-19] MEDS ORDERED: morphine CARPU-JECT 4 MG/1 ML DISP.SYRIN IVPUSH ONE (21:25)
[2023-04-19] MEDS ORDERED: ONDANSETRON 4 MG/2 ML VIAL IVPUSH ONE (21:25)
[2023-04-19] MEDS ORDERED: morphine SULFATE 4 MG/ML VIAL ONE (21:43)
[2023-04-19] MEDS ORDERED: ONDANSETRON 4 MG/2 ML VIAL ONE (21:43)
[2023-04-19] MEDS ORDERED: KETOROLAC TROMETHAMINE 30 MG/1 ML VIAL IVPUSH ONE (21:49)
[2023-04-19] MEDS ORDERED: KETOROLAC TROMETHAMINE 30 MG/1 ML VIAL ONE (21:54)
[2023-04-19 22:15] LABS: HEMATOCRIT 50.3 % (35.4-49); HEMOGLOBIN 17.2 G/dL (11.7-16.9); MCH 31.6 pg (25.7-33.7); MCHC 34.2 g/dl (32.0-35.9); MEAN CELL VOLUME 92.6 fl (80-96); MEAN PLT VOLUME 11.9 fl (7.5-11.1); PLATELET COUNT 121.8 10^3/uL (134-434); RBC 5.43 10^6/uL (4.00-5.60); RDW 14.9 % (11.9-15.9); WHITE BLOOD COUNT 8.8 10^3/uL (4.0-10.8)
[2023-04-19 22:38] LABS: EPITHELIAL CELLS FEW /hpf
[2023-04-19 22:41] LABS: ALBUMIN 4.1 g/dl (3.4-5.0); BILIRUBIN,TOTAL 0.7 mg/dl (0.2-1); BLOOD UREA NITROGEN 10.6 mg/dl (7-18); CREATININE 0.6 mg/dl (0.6-1.3); PHOSPHOROUS 2.72 (2.5-4.9); POTASSIUM 3.2 mmol/L (3.5-5.1); SGOT/AST 18.3 U/L (15-37); SGPT/ALT 21.5 U/L (7-52); TOT PROT 6.7 g/dl (6.4-8.2)
[2023-04-19] MEDS ORDERED: HYDROmorphone HCl 2 MG/ML VIAL IVPUSH STA (23:09)
[2023-04-19 23:15] LABS: MAGNESIUM 0.9 mg/dL (1.8-2.4)
[2023-04-19] MEDS ORDERED: HYDROmorphone HCL/PF 1 MG/ML VIAL ONE (23:24)
[2023-04-19] MEDS ORDERED: MAGNESIUM SULF 50% (8.12 MEQ/2 ML-1 GM VIAL) IVPB ONE (23:28)
[2023-04-19] MEDS ORDERED: MAGNESIUM SULFATE IN WATER 4 GM/100 ML IVPB IVPB ONE (23:34)
[2023-04-20 01:19] VITALS: BP 120/60; PULSE 68; RESP 17; TEMP 97.6
== END 2023-04-20 02:58 | disposition home or self-care (01) ==
LOC: FER 20:48
PROC: 3E033GC Introduction of Other Therapeutic Substance into Peripheral Vein, Percutaneous Approach (ICD-10-PCS; principal; 2023-04-19)
PROC: 3E033GC Introduction of Other Therapeutic Substance into Peripheral Vein, Percutaneous Approach (ICD-10-PCS; 2023-04-19)
PROC: 3E033GC Introduction of Other Therapeutic Substance into Peripheral Vein, Percutaneous Approach (ICD-10-PCS; 2023-04-19)
PROC: 3E033GC Introduction of Other Therapeutic Substance into Peripheral Vein, Percutaneous Approach (ICD-10-PCS; 2023-04-19)
PROC: 3E0333Z Introduction of Anti-inflammatory into Peripheral Vein, Percutaneous Approach (ICD-10-PCS; 2023-04-19)
PROC: 3E0337Z Introduction of Electrolytic and Water Balance Substance into Peripheral Vein, Percutaneous Approach (ICD-10-PCS; 2023-04-19)
DX: R10.33 Periumbilical pain (principal); E61.2 Magnesium deficiency; R07.81 Pleurodynia
CPT/HCPCS: 36415; 71045-TC-FY; 74176-TC; 80053; 81003; 81015; 82550; 83605; 83690; 83735; 84100; 84484; 85027; 87086; 93005; 99285-25

== ENCOUNTER 2023-09-07 02:22 | Emergency (ER) | payer OTHER, BC ==
[2023-09-07 02:32] VITALS: RESP 18; BMI 26.9
[2023-09-07] MEDS ORDERED: KETOROLAC TROMETHAMINE 30 MG/1 ML VIAL IVPUSH ONE (02:41)
[2023-09-07] MEDS ORDERED: PANTOPRAZOLE SODIUM 40 MG VIAL IVPUSH ONE (02:46)
[2023-09-07] MEDS ORDERED: PANTOPRAZOLE SODIUM 40 MG VIAL ONE (02:51)
[2023-09-07] MEDS ORDERED: KETOROLAC TROMETHAMINE 30 MG/1 ML VIAL ONE (02:51)
[2023-09-07 03:42] LABS: HEMATOCRIT 50.2 % (35.4-49); HEMOGLOBIN 16.9 GM/dL (11.7-16.9); MCH 31.4 pg (25.7-33.7); MCHC 33.7 g/dl (32.0-35.9); MEAN PLT VOLUME 10.4 fl (7.5-11.1); PLATELET COUNT 122 10^3/uL (134-434); RBC 5.39 M/mm3 (4.00-5.60); WHITE BLOOD COUNT 8.4 K/mm3 (4.0-10.0)
[2023-09-07 03:45] LABS: EPI CELLS 1 /uL (0-25.1); HYALINE CASTS 0 /uL (0-3.1); URINE APPEARANCE CLEAR; URINE BACTERIA 5 /uL (0-1359); URINE BILIRUBIN NEGATIVE (NEGATIVE); URINE COLOR YELLOW; URINE GLUCOSE (UA) 3+ (NEGATIVE); URINE KETONE TRACE (NEGATIVE); URINE LEUK ESTERASE NEGATIVE (NEGATIVE); URINE NITRITE NEGATIVE (NEGATIVE); URINE PROTEIN 2+ (NEGATIVE); URINE RBC 44 /uL (0-23.9); URINE WBC 16 /uL (0-25.8)
[2023-09-07 03:49] LABS: INR 1.14 (0.83-1.09); PROTHROMBIN TIME (PATIENT) 13.2 SEC (9.7-13.0)
[2023-09-07 04:05] LABS: POTASSIUM 3.4 mmol/L (3.5-5.1)
[2023-09-07 04:07] LABS: MAGNESIUM 1.9 mg/dL (1.8-2.4)
[2023-09-07 04:09] LABS: ALBUMIN 3.4 g/dl (3.4-5.0); BLOOD UREA NITROGEN 15.9 mg/dL (7-18)
[2023-09-07 04:11] LABS: CREATININE 0.7 mg/dL (0.55-1.3)
[2023-09-07 04:12] LABS: PHOSPHOROUS 3.4 mg/dL (2.5-4.9)
[2023-09-07 04:13] LABS: TOT PROT 6.9 g/dl (6.4-8.2)
[2023-09-07 04:14] LABS: BILIRUBIN,TOTAL 0.5 mg/dL (0.2-1)
[2023-09-07] MEDS ORDERED: MAG HYDROX/AL HYDROX/SIMETH 30 ML UNIT-DOSE CUP PO ONE (07:15)
[2023-09-07] MEDS ORDERED: MAG HYDROX/AL HYDROX/SIMETH 30 ML UNIT-DOSE CUP ONE (07:20)
[2023-09-07 07:47] VITALS: BP 173/78; PULSE 69; TEMP 98.8
== END 2023-09-07 08:09 | disposition home or self-care (01) ==
LOC: FER 02:22
PROC: 3E033NZ Introduction of Analgesics, Hypnotics, Sedatives into Peripheral Vein, Percutaneous Approach (ICD-10-PCS; principal; 2023-09-07)
PROC: 3E033GC Introduction of Other Therapeutic Substance into Peripheral Vein, Percutaneous Approach (ICD-10-PCS; 2023-09-07)
DX: R14.1 Gas pain (principal); R10.13 Epigastric pain; K31.89 Other diseases of stomach and duodenum
CPT/HCPCS: 36415; 74177-TC; 80053; 81003; 82550; 83605; 83690; 83735; 84100; 84484; 85027; 85610; 93005; 99285-25; Q9967

== ENCOUNTER 2024-07-30 04:29 | Day surgery (SDC) | payer OTHER, BC ==
[2024-07-26 15:46] VITALS: BMI 25.7
[2024-07-30] MEDS ORDERED: CEFAZOLIN SODIUM 2 GM VIAL ONE (08:11)
[2024-07-30 09:05] VITALS: TEMP 98.2
[2024-07-30 09:54] VITALS: BP 128/62; PULSE 65; RESP 16
== END 2024-07-30 09:57 | disposition home or self-care (01) ==
LOC: JASU-ENDO 04:29
PROVIDERS: ATTEND Internal Medicine Gastroenterology
PROC: 0DBL8ZX Excision of Transverse Colon, Via Natural or Artificial Opening Endoscopic, Diagnostic (ICD-10-PCS; 2024-07-30)
PROC: 0DBM8ZX Excision of Descending Colon, Via Natural or Artificial Opening Endoscopic, Diagnostic (ICD-10-PCS; 2024-07-30)
PROC: 0DB98ZX Excision of Duodenum, Via Natural or Artificial Opening Endoscopic, Diagnostic (ICD-10-PCS; 2024-07-30)
PROC: 0DB78ZX Excision of Stomach, Pylorus, Via Natural or Artificial Opening Endoscopic, Diagnostic (ICD-10-PCS; 2024-07-30)
PROC: 0DB68ZX Excision of Stomach, Via Natural or Artificial Opening Endoscopic, Diagnostic (ICD-10-PCS; 2024-07-30)
PROC: 0DBH8ZX Excision of Cecum, Via Natural or Artificial Opening Endoscopic, Diagnostic (ICD-10-PCS; principal; 2024-07-30 08:00)
DX: Z12.11 Encounter for screening for malignant neoplasm of colon (principal); D12.0 Benign neoplasm of cecum; K63.5 Polyp of colon; K64.4 Residual hemorrhoidal skin tags; K64.8 Other hemorrhoids; K29.50 Unspecified chronic gastritis without bleeding; K21.00 Gastro-esophageal reflux disease with esophagitis, without bleeding
CPT/HCPCS: 82962; 88305-TC; 88342-TC

== ENCOUNTER 2024-10-03 09:20 | Emergency (ER) | payer OTHER, BC ==
[2024-10-03 09:38] VITALS: BP 145/75; PULSE 66; RESP 18; TEMP 97.9; BMI 26.9
[2024-10-03] MEDS ORDERED: ALBUTEROL SO4 2.5/IPRATROPIUM 0.5 INH SOL 3 ML VIAL.NEB. NEB ONE (09:57)
[2024-10-03] MEDS: ALBUTEROL SO4 2.5/IPRATROPIUM 0.5 INH SOL 3 ML VIAL.NEB. NEB ONE (10:01)
[2024-10-03] MEDS ORDERED: ACETAMINOPHEN 500 MG TABLET (FP) ONE (10:57)
[2024-10-03] MEDS: ACETAMINOPHEN 500 MG TABLET (FP) PO ONE (11:00)
[2024-10-03 12:34] LABS: HEMATOCRIT 48.9 % (35.4-49); HEMOGLOBIN 16.6 G/dL (11.7-16.9); MCH 32.4 pg (25.7-33.7); MEAN CELL VOLUME 95.2 fl (80-96); MEAN PLT VOLUME 9.6 fl (7.5-11.1); PLATELET COUNT 100.3 10^3/uL (134-434); RBC 5.14 10^6/uL (4.00-5.60); RDW 13.8 % (11.9-15.9); WHITE BLOOD COUNT 7.4 10^3/uL (4.0-10.8)
[2024-10-03 12:49] LABS: ALBUMIN 3.9 g/dl (3.4-5.0); ALK PHOS 76 U/L (45-117); ANION GAP 10 mmol/L (4-13); BILIRUBIN,TOTAL 0.4 mg/dl (0.2-1); CALCIUM 9.2 mg/dl (8.5-10.1); CHLORIDE 106 mmol/L (98-107); CO2 26 mmol/L (21-32); CREATININE 0.7 mg/dl (0.6-1.3); GLUCOSE,RANDOM 175 mg/dl (74-106); POTASSIUM 3.9 mmol/L (3.5-5.1); SGOT/AST 12 U/L (15-37); SGPT/ALT 16 U/L (7-52); SODIUM 142 mmol/L (136-145); TOT PROT 6.2 g/dl (6.4-8.2)
[2024-10-03 13:27] LABS: PLATELET ESTIMATE SLT DECREASE
== END 2024-10-03 13:20 | disposition home or self-care (01) ==
LOC: FER 09:20
PROC: 3E0F7GC Introduction of Other Therapeutic Substance into Respiratory Tract, Via Natural or Artificial Opening (ICD-10-PCS; principal; 2024-10-03)
DX: J18.9 Pneumonia, unspecified organism (principal); J42 Unspecified chronic bronchitis; J44.9 Chronic obstructive pulmonary disease, unspecified; R05.9 Cough, unspecified; R09.81 Nasal congestion; M54.9 Dorsalgia, unspecified; Z20.822 Contact with and (suspected) exposure to COVID-19
CPT/HCPCS: 0241U-QW; 36415; 71045-TC-FY; 80053; 85027; 93005; 99285-25

== ENCOUNTER 2025-03-17 21:27 | Emergency (ER) | payer OTHER, BC ==
[2025-03-17 21:37] VITALS: BP 140/68; PULSE 80; RESP 16; TEMP 98.4; BMI 27.3
== END 2025-03-18 00:14 | disposition home or self-care (01) ==
LOC: FER 21:27
DX: R31.9 Hematuria, unspecified (principal); M79.89 Other specified soft tissue disorders
CPT/HCPCS: 81003; 81015; 87086; 93971-TC; 99284-25

== ENCOUNTER 2025-03-21 05:32 | Day surgery (SDC) | payer OTHER, BC ==
[2025-03-18 10:18] VITALS: BMI 27.3
[2025-03-21] MEDS ORDERED: ONDANSETRON 4 MG/2 ML VIAL IVPUSH PRN (13:24)
[2025-03-21] MEDS ORDERED: oxyCODONE HCL 5 MG TABLET PO PRN ×2 (13:24)
[2025-03-21] MEDS ORDERED: LACTATED RINGERS SOLUTION 1,000 ML IV SCH (13:30)
[2025-03-21] MEDS ORDERED: DEXTROSE 5%-0.45% SALINE 1,000 ML IV SCH (13:45)
[2025-03-21] MEDS ORDERED: MIDAZOLAM HCL 2 MG/2 ML SINGLE DOSE VIAL ONE (14:03)
[2025-03-21] MEDS ORDERED: LIDOCAINE HCL/PF 2% SDV 5ML VIAL ONE (14:08)
[2025-03-21] MEDS ORDERED: ceFAZolin SODIUM 1 GM VIAL ONE ×2 (14:10)
[2025-03-21] MEDS: ceFAZolin SODIUM 1 GM VIAL IVPB ONE (14:11)
[2025-03-21] MEDS ORDERED: PROPOFOL 20 ML ONE (14:12)
[2025-03-21] MEDS ORDERED: DEXAMETHASONE SOD PHOSPHATE 4 MG/1 ML VIAL ONE (14:17)
[2025-03-21] MEDS ORDERED: ONDANSETRON 4 MG/2 ML VIAL ONE (14:17)
[2025-03-21] MEDS ORDERED: ACETAMINOPHEN INJECTION 100 ML ONE (14:36)
[2025-03-21] MEDS ORDERED: KETOROLAC TROMETHAMINE 30 MG/1 ML VIAL ONE (15:08)
[2025-03-21 16:36] VITALS: RESP 20; TEMP 97.3
[2025-03-21 17:16] VITALS: BP 126/56; PULSE 62
== END 2025-03-21 17:08 | disposition home or self-care (01) ==
LOC: JASU-SURG 05:32
PROVIDERS: ATTEND Urology
PROC: 0TC68ZZ Extirpation of Matter from Right Ureter, Via Natural or Artificial Opening Endoscopic (ICD-10-PCS; principal; 2025-03-21 14:00)
PROC: 0T768DZ Dilation of Right Ureter with Intraluminal Device, Via Natural or Artificial Opening Endoscopic (ICD-10-PCS; 2025-03-21 14:00)
PROC: 0TP5X0Z Removal of Drainage Device from Kidney, External Approach (ICD-10-PCS; 2025-03-21 14:00)
DX: N20.1 Calculus of ureter (principal)
CPT/HCPCS: 76000-TC-FY; 82962; 94760; C1758; C1769; C2617